=== PATIENT | female | born 1945 ===

== ENCOUNTER 2018-08-27 18:15 | Inpatient (IN) | payer MEDICARE, MEDICAID ==
--- NOTE | 2018-08-27 19:41 | ED PDOC ---
HPI: General Adult Time Seen by Provider: 08/27/18 19:12 Chief Complaint (Nursing): Weakness/Neurological Deficit Chief Complaint (Provider): Generalized weakness and tremors History Per: Patient, Family ( ), Home Organizer (rolan Cooper) History/Exam Limitations: language barrier () Onset/Duration Of Symptoms: Days (x2-3) Current Symptoms Are (Timing): Still Present Additional Complaint(s): Geetha Sheffield is a 73 year old female, with a past medical history of HTN, hypercholesterolemia, diabetes, depression, anxiety and dementia, who presents to the emergency department accompanied by complaining of generalized weakness and tremors onset for x2-3 days. reports symptoms started at the same time and she has been seen here for the same in the past. also reports a decrease in appetite but she has been drinking soda, which she drinks x3-4 bottles of 12oz almost every day. Patient denies any apparent pain, recent illness, headache or other medical complaints. PMD: Ray De Los Santos Past Medical History Reviewed: Historical Data, Nursing Documentation, Vital Signs Vital Signs: Last Vital Signs Temp 98.2 F 08/27/18 18:56 Pulse 95 H 08/27/18 18:56 Resp 18 08/27/18 18:56 BP 157/85 H 08/27/18 18:56 Pulse Ox 95 08/27/18 18:56 - Medical History PMH: Anxiety, Dementia, Depression, Diabetes, HTN, Hypercholesterolemia - Surgical History Surgical History: No Surg Hx - Family History Family History: States: Unknown Family Hx - Allergies Allergies/Adverse Reactions: Allergies Allergy/AdvReac Type Severity Reaction Status Date / Time No Known Allergies Allergy Verified 08/27/18 18:53 Review of Systems ROS Statement: Except As Marked, All Systems Reviewed And Found Negative Constitutional: Positive for: Weakness (generalized) Gastrointestinal: Positive for: Other (decreased appetite but drinking soda) Musculoskeletal: Positive for: Other (tremors) Neurological: Negative for: Headache Physical Exam - Reviewed Nursing Documentation Reviewed: Yes Vital Signs Reviewed: Yes - Physical Exam Appears: Positive for: No Acute Distress Head Exam: Positive for: ATRAUMATIC, NORMAL INSPECTION, NORMOCEPHALIC Skin: Positive for: Warm, Dry, Pallor Eye Exam: Positive for: Normal appearance, EOMI, PERRL Neck: Positive for: Normal, Painless ROM, Supple Cardiovascular/Chest: Positive for: Regular Rate, Rhythm. Negative for: Murmur Respiratory: Positive for: Normal Breath Sounds. Negative for: Respiratory Distress Gastrointestinal/Abdominal: Positive for: Normal Exam, Soft. Negative for: Tenderness, Guarding, Rebound Back: Positive for: Normal Inspection. Negative for: L CVA Tenderness, R CVA Tenderness, Vertebral Tenderness Extremity: Positive for: Normal ROM (upper and lower extremities). Negative for: Tenderness, Deformity, Swelling Neurologic/Psych: Positive for: Alert, endoscopic technician II-XII (intact), Oriented, Cerebellar Tests (normal), Other (Global tremors at rest). Negative for: Motor/Sensory Deficits, Aphasia, Facial Droop - Laboratory Results Result Diagrams: 08/27/18 21:29 08/27/18 20:53 - ECG O2 Sat by Pulse Oximetry: 95 (RA) Pulse Ox Interpretation: Normal Medical Decision Making Medical Decision Making: Time: 19:12 A/P: 73 y/o female with history of DM, HTN, hypercholesterolemia, depression and anxiety presenting with tremors and weakness for the past x3 days. Symptoms are not lateralizing, not concerned for acute CVA. Differential diagnosis includes but not limited to electrolyte imbalance, anemia, infection, and anxiety. Will get blood work, head CT, chest x-ray and reeval. Initial Plan: --Type and screen --VBG Shock Panel --Head w/o contrast [CT] --Alcohol serum --CMP --Drug screen, urine --Troponin I --CBC w/ differential --PTT --PT --Chest two views (PA/LAT) [RAD] --Urinalysis --Reevaluation --Accucheck 189 21:[address] FINDINGS: BRAIN Chronic severe periventricular and subcortical microvascular disease is seen. VENTRICLES: There is generalized parenchymal atrophy noted as demonstrated by symmetrical dilatation of ventricles and sulci. ORBITS: The orbits are unremarkable. SINUSES AND MASTOIDS: Opacification is noted including right mastoid air cells compatible with mastoiditis. BONES: No fracture. SOFT TISSUES: Unremarkable. MISCELLANEOUS: No acute intracranial pathology. IMPRESSION: 1. There is generalized parenchymal atrophy noted as demonstrated by symmetrical dilatation of ventricles and sulci. 2. Chronic severe periventricular and subcortical microvascular disease is seen. 3. Right mastoiditis. 4. No acute intracranial pathology. --2L NS ordered after elevated lactate of 8 (manually placed in computer by nurse due to VBG-meditech interface error earlier) --ABx ordered empirically --Signs of UTI --After fluids, patient reported feeling better, less tremulous, with more strength, was able to ambulate to the bathroom unassisted --Rectal temp 97 --Second lactic acid is 5.5 on VBG, will continue to hydrate --Case discussed with Dr. Agee, patient is suitable for Tele, does not need ICU given stable vitals and improving condition --------- Scribe Attestation: Documented by Kenneth Staley, acting as a scribe for Arthur Alejo MD. Provider Scribe Attestation: All medical record entries made by the Scribe were at my direction and personal ly dictated by me. I have reviewed the chart and agree that the record accurately reflects my personal performance of the history, physical exam, medical decision making, and the department course for this patient. I have also personally directed, reviewed, and agree with the discharge instructions and disposition. Disposition - Clinical Impression Clinical Impression: UTI (urinary tract infection), Sepsis - Patient ED Disposition Is Patient to be Admitted: Yes Discussed With : Tera Agee Doctor Will See Patient In The: Hospital - Disposition Disposition Time: 00:00 Condition: IMPROVED
[2018-08-27 21:24] LABS: INR 0.9; PROTHROMBIN TIME 10.2 Seconds (9.8-13.1)
[2018-08-27 21:29] LABS: ALB/GLOB RATIO 1.1 (1.0-2.1); ALBUMIN 4.4 g/dL (3.5-5.0); ALT/SGPT 18 U/L (9-52); AST/SGOT 23 U/L (14-36); BLOOD UREA NITROGEN 34 mg/dl (7-17); CALCIUM 10.2 mg/dL (8.4-10.2); GFR NON-AFRICAN AMERICAN 28
[2018-08-27 21:34] LABS: BASO % 0.3 % (0.0-2.0); EOS % 0.1 % (0.0-4.0); LYMPH # 0.9 K/uL (1.0-4.3); LYMPH % 5.5 % (20.0-40.0); MEAN CELL VOLUME 83.7 fl (81.0-99.0); MEAN CORPUSCULAR HEMOGLOBIN 27.3 pg (27.0-31.0); MEAN CORPUSCULAR HGB CONC 32.6 g/dL (33.0-37.0); MEAN PLATELET VOLUME 9.5 fl (7.2-11.7); MONO # 0.9 K/uL (0.0-0.8); MONO % 5.5 % (0.0-10.0); NEUT # 15.2 K/uL (1.8-7.0); NEUT % 88.6 % (50.0-75.0); PLATELET COUNT 324 K/uL (130-400); RBC 4.77 Mil/uL (3.80-5.20); RED CELL DISTRIBUTION WIDTH 13.8 % (11.5-14.5); WHITE BLOOD COUNT 17.1 K/uL (4.8-10.8)
[2018-08-27] MEDS: Sodium Chloride 0.9% 2,000 ML IV SCH ×2 (22:03→23:15)
[2018-08-27 22:29] LABS: HYPOCHROMIC SLIGHT; LYMPHOCYTE 9 % (20-50); MICROCYTOSIS SLIGHT; MONOCYTE 3 % (0-10); NEUTROPHIL 88 % (42-75); PLATELET ESTIMATE NORMAL (NORMAL); TOTAL CELLS COUNTED 100
[2018-08-27 22:30] LABS: HYPERSEGMENTATION PRESENT
[2018-08-27 23:00] LABS: PARTIAL THROMBOPLASTIN TIME 113.5 Seconds (25.6-37.1)
[2018-08-27 23:51] LABS: SQUAMOUS EPITHIAL 5 /hpf (0-5); URINE BACTERIA MOD (<OCC); URINE BILIRUBIN NEGATIVE (NEGATIVE); URINE BLOOD NEGATIVE (NEGATIVE); URINE CLARITY SLIGHTY-CLOUDY (Clear); URINE COLOR YELLOW (YELLOW); URINE GLUCOSE (UA) NEG (Normal); URINE LEUKOCYTE ESTERASE TRACE Leu/uL (Negative); URINE PROTEIN NEGATIVE (NEGATIVE); URINE UROBILINOGEN 0.2-1.0 mg/dL (0.2-1.0)
[2018-08-28 00:49] LABS: VENOUS BLOOD GAS BASE EXCESS -0.8 mmol/L (0.0-2.0); VENOUS BLOOD GAS PCO2 41 mmHg (40-60); VENOUS BLOOD GAS PO2 60 mm/Hg (30-55); VENOUS BLOOD PH 7.38 (7.32-7.43)
[2018-08-28] MEDS ORDERED: Sodium Chloride 0.9% 1,000 ML IV SCH (01:00)
[2018-08-28] MEDS ORDERED: Metoprolol 1 mg/ml Inj IVP STA (02:49)
[2018-08-28] MEDS ORDERED: levoFLOXacin 750 mg in D5W 750 MG/150 ML BAG IVPB ONE (02:59)
[2018-08-28] MEDS ORDERED: levoFLOXacin 750 mg in D5W 750 MG/150 ML BAG IVPB STA (03:09)
[2018-08-28] MEDS ORDERED: Metoprolol 1 mg/ml Inj IVP ONE (03:40)
[2018-08-28] MEDS: Sodium Chloride 0.9% 1,000 ML IV SCH ×3 (08:35→21:12)
[2018-08-28] MEDS: levoFLOXacin 750 mg in D5W 750 MG/150 ML BAG IVPB SCH (08:36)
[2018-08-28] MEDS ORDERED: levoFLOXacin 750 mg in D5W 150 ML BAG IVPB SCH (09:00)
[2018-08-28] MEDS ORDERED: levoFLOXacin 750 mg in D5W 750 MG/150 ML BAG IVPB SCH (09:00)
[2018-08-28 09:27] LABS: HEMOGLOBIN 11.7 g/dL (12.0-16.0); MEAN CELL VOLUME 83.8 fl (81.0-99.0); MEAN CORPUSCULAR HEMOGLOBIN 27.3 pg (27.0-31.0); MEAN CORPUSCULAR HGB CONC 32.6 g/dL (33.0-37.0); RBC 4.28 Mil/uL (3.80-5.20); RED CELL DISTRIBUTION WIDTH 13.7 % (11.5-14.5); WHITE BLOOD COUNT 14.7 K/uL (4.8-10.8)
--- NOTE | 2018-08-28 09:48 | CP.PCM.HP ---
History of Present Illness - History of Present Illness History of Present Illness: 73 year old female w/ PMHx of HTN, hypercholesterolemia, diabetes, depression, anxiety and dementia presented to ED due to generalized weakness and tremors onset for 2-3 days. Patient was found to have severe lactic acidosis with possible source of infection in urine. Patient was given IVF and has improved. Patient was seen and examined today, states she feels well. no pain/fever/chills/urinary symptoms. PMD: Ray De Los Santos Present on Admission - Present on Admission Any Indicators Present on Admission: No Review of Systems - Review of Systems All systems: reviewed and no additional remarkable complaints except (mentioned above) Past Patient History - Past Medical History & Family History Past Medical History?: Yes - Past Social History Smoking Status: Never Smoked - CARDIAC Hx Cardiac Disorders: Yes Hx Hypercholesterolemia: Yes Hx Hypertension: Yes - PULMONARY Hx Respiratory Disorders: No - NEUROLOGICAL Hx Neurological Disorder: Yes Hx Dementia: Yes - HEENT Hx HEENT Problems: No - RENAL Hx Chronic Kidney Disease: No - ENDOCRINE/METABOLIC Hx Endocrine Disorders: Yes Hx Diabetes Mellitus Type 2: Yes - HEMATOLOGICAL/ONCOLOGICAL Hx Blood Disorders: No - INTEGUMENTARY Hx Dermatological Problems: No - MUSCULOSKELETAL/RHEUMATOLOGICAL Hx Musculoskeletal Disorders: No Hx Falls: No - GASTROINTESTINAL Hx Gastrointestinal Disorders: No - GENITOURINARY/GYNECOLOGICAL Hx Genitourinary Disorders: No - PSYCHIATRIC Hx Psychophysiologic Disorder: Yes Hx Anxiety: Yes Hx Depression: Yes Hx Substance Use: No - SURGICAL HISTORY Hx Surgeries: Yes Hx Cardiac Catheterization: Yes Hx Section: Yes - ANESTHESIA Hx Anesthesia: Yes Hx Anesthesia Reactions: No Meds Allergies/Adverse Reactions: Allergies Allergy/AdvReac Type Severity Reaction Status Date / Time No Known Allergies Allergy Verified 08/27/18 18:53 Physical Exam - Constitutional Appears: Non-toxic, No Acute Distress - Head Exam Head Exam: NORMAL INSPECTION - Eye Exam Eye Exam: Normal appearance - Neck Exam Neck exam: Positive for: Normal Inspection - Respiratory Exam Respiratory Exam: NORMAL BREATHING PATTERN - Cardiovascular Exam Cardiovascular Exam: +S1, +S2 - GI/Abdominal Exam GI & Abdominal Exam: Soft, Tenderness (suprapubic) - Psychiatric Exam Psychiatric exam: Normal Affect, Normal Mood - Skin Skin Exam: Normal Color, Warm Results - Vital Signs Recent Vital Signs: Last Vital Signs Temp 98.1 F 08/28/18 07:57 Pulse 60 08/28/18 08:29 Resp 18 08/28/18 07:57 BP 158/71 H 08/28/18 08:29 Pulse Ox 96 08/28/18 07:57 - Labs Result Diagrams: 08/30/18 06:00 08/30/18 06:00 Labs: Laboratory Results - last 24 hr 08/27/18 08/27/18 08/27/18 19:27 20:43 20:44 WBC Cancelled RBC Cancelled Hgb Cancelled Hct Cancelled MCV Cancelled MCH Cancelled MCHC Cancelled RDW Cancelled Plt Count Cancelled MPV Cancelled Gran % Cancelled Neut % (Auto) Lymph % (Auto) Cancelled Glenn % (Auto) Cancelled Eos % (Auto) Cancelled Baso % (Auto) Cancelled Gran # Cancelled Neut # (Auto) Lymph # (Auto) Cancelled Glenn # (Auto) Cancelled Eos # (Auto) Cancelled Baso # (Auto) Cancelled Neutrophils % (Manual) Cancelled Band Neutrophils % Cancelled Lymphocytes % (Manual) Cancelled Reactive Lymphs % Cancelled Monocytes % (Manual) Cancelled Eosinophils % (Manual) Cancelled Basophils % (Manual) Cancelled Metamyelocytes % Cancelled Myelocytes % Cancelled Promyelocytes % Cancelled Blast Cells % Cancelled Plasma Cell % (Manual) Cancelled Nucleated RBC % Cancelled Hypersegmented Polys Cancelled Smudge Cells Cancelled Toxic Granulation Cancelled Dohle Bodies Cancelled Aida Rods Cancelled Platelet Estimate Cancelled Plt Clumps, EDTA Cancelled Large Platelets Cancelled Giant Platelets Cancelled RBC Morphology Cancelled Polychromasia Cancelled Hypochromasia (manual) Cancelled Poikilocytosis (manual Cancelled Basophilic Stippling Cancelled Anisocytosis (manual) Cancelled Microcytosis (manual) Cancelled Macrocytosis (manual) Cancelled Spherocytes Cancelled Sickle Cells Cancelled Target Cells Cancelled Tear Drop Cells Cancelled Ovalocytes Cancelled Stomatocytes Cancelled Helmet Cells Cancelled [place] Bodies Cancelled [place] Cells Cancelled Acanthocytes (Spur) Cancelled Rouleaux Cancelled Schistocytes Cancelled PT INR APTT pO2 VBG pH VBG pCO2 VBG HCO3 VBG Total CO2 VBG O2 Sat (Calc) VBG Base Excess VBG Potassium Glucose Lactate FiO2 Crit Value Called To Crit Value Called By Crit Value Read Back Blood Gas Notified Time Sodium Potassium Chloride Carbon Dioxide Anion Gap BUN Creatinine Est GFR ( Amer) Est GFR (Non-Af Amer) POC Glucose (mg/dL) 189 H Random Glucose Lactic Acid Calcium Total Bilirubin AST ALT Alkaline Phosphatase Troponin I Total Protein Albumin Globulin Albumin/Globulin Ratio Venous Blood Potassium Urine Color Urine Clarity Urine pH Ur Specific [place] Urine Protein Urine Glucose (UA) Urine Ketones Urine Blood Urine Nitrate Urine Bilirubin Urine Urobilinogen Ur Leukocyte Esterase Urine RBC (Auto) Urine Microscopic WBC Ur Squamous Epith Cells Urine Bacteria Hyaline Casts Influenza Typ A,B (EIA) Blood Type A POSITIVE Blood Type Confirm Antibody Screen Negative BBK History Checked No verified bt 08/27/18 08/27/18 08/27/18 20:53 21:29 21:29 WBC 17.1 H RBC 4.77 Hgb 13.0 Hct 40.0 MCV 83.7 MCH 27.3 MCHC 32.6 L RDW 13.8 Plt Count 324 MPV 9.5 Gran % Neut % (Auto) 88.6 H Lymph % (Auto) 5.5 L Glenn % (Auto) 5.5 Eos % (Auto) 0.1 Baso % (Auto) 0.3 Gran # Neut # (Auto) 15.2 H Lymph # (Auto) 0.9 L Glenn # (Auto) 0.9 H Eos # (Auto) 0.0 Baso # (Auto) 0.0 Neutrophils % (Manual) 88 H Band Neutrophils % Lymphocytes % (Manual) 9 L Reactive Lymphs % Monocytes % (Manual) 3 Eosinophils % (Manual) Basophils % (Manual) Metamyelocytes % Myelocytes % Promyelocytes % Blast Cells % Plasma Cell % (Manual) Nucleated RBC % Hypersegmented Polys Present Smudge Cells Toxic Granulation Dohle Bodies Aida Rods Platelet Estimate Normal Plt Clumps, EDTA Large Platelets Giant Platelets RBC Morphology Polychromasia Hypochromasia (manual) Slight Poikilocytosis (manual Basophilic Stippling Anisocytosis (manual) Microcytosis (manual) Slight Macrocytosis (manual) Spherocytes Sickle Cells Target Cells Tear Drop Cells Ovalocytes Stomatocytes Helmet Cells [place] Bodies Abdoul Cells Acanthocytes (Spur) Rouleaux Schistocytes PT INR APTT pO2 VBG pH VBG pCO2 VBG HCO3 VBG Total CO2 VBG O2 Sat (Calc) VBG Base Excess VBG Potassium Glucose Lactate FiO2 Crit Value Called To Crit Value Called By Crit Value Read Back Blood Gas Notified Time Sodium 141 Potassium 3.4 L Chloride 101 Carbon Dioxide 20 L Anion Gap 23 H BUN 34 H Creatinine 1.8 H Est GFR ( Amer) 33 Est GFR (Non-Af Amer) 28 POC Glucose (mg/dL) Random Glucose 143 H Lactic Acid Calcium 10.2 Total Bilirubin 0.5 AST 23 ALT 18 Alkaline Phosphatase 89 Troponin I < 0.0120 Total Protein 8.4 H Albumin 4.4 Globulin 4.0 H Albumin/Globulin Ratio 1.1 Venous Blood Potassium Urine Color Urine Clarity Urine pH Ur Specific [place] Urine Protein Urine Glucose (UA) Urine Ketones Urine Blood Urine Nitrate Urine Bilirubin Urine Urobilinogen Ur Leukocyte Esterase Urine RBC (Auto) Urine Microscopic WBC Ur Squamous Epith Cells Urine Bacteria Hyaline Casts Influenza Typ A,B (EIA) Blood Type Blood Type Confirm A POSITIVE Antibody Screen BBK History Checked 08/27/18 08/27/18 08/27/18 21:35 23:44 23:50 WBC RBC Hgb Hct MCV MCH MCHC RDW Plt Count MPV Gran % Neut % (Auto) Lymph % (Auto) Glenn % (Auto) Eos % (Auto) Baso % (Auto) Gran # Neut # (Auto) Lymph # (Auto) Glenn # (Auto) Eos # (Auto) Baso # (Auto) Neutrophils % (Manual) Band Neutrophils % Lymphocytes % (Manual) Reactive Lymphs % Monocytes % (Manual) Eosinophils % (Manual) Basophils % (Manual) Metamyelocytes % Myelocytes % Promyelocytes % Blast Cells % Plasma Cell % (Manual) Nucleated RBC % Hypersegmented Polys Smudge Cells Toxic Granulation Dohle Bodies Aida Rods Platelet Estimate Plt Clumps, EDTA Large Platelets Giant Platelets RBC Morphology Polychromasia Hypochromasia (manual) Poikilocytosis (manual Basophilic Stippling Anisocytosis (manual) Microcytosis (manual) Macrocytosis (manual) Spherocytes Sickle Cells Target Cells Tear Drop Cells Ovalocytes Stomatocytes Helmet Cells [place] Bodies [place] Cells Acanthocytes (Spur) Rouleaux Schistocytes PT 10.2 INR 0.9 APTT 113.5 H pO2 VBG pH VBG pCO2 VBG HCO3 VBG Total CO2 VBG O2 Sat (Calc) VBG Base Excess VBG Potassium Glucose Lactate FiO2 Crit Value Called To Crit Value Called By Crit Value Read Back Blood Gas Notified Time Sodium Potassium Chloride Carbon Dioxide Anion Gap BUN Creatinine Est GFR ( Amer) Est GFR (Non-Af Amer) POC Glucose (mg/dL) Random Glucose Lactic Acid Calcium Total Bilirubin AST ALT Alkaline Phosphatase Troponin I Total Protein Albumin Globulin Albumin/Globulin Ratio Venous Blood Potassium Urine Color Yellow Urine Clarity Slighty-cloudy Urine pH 6.0 Ur Specific [place] 1.012 Urine Protein Negative Urine Glucose (UA) Neg Urine Ketones Negative Urine Blood Negative Urine Nitrate Negative Urine Bilirubin Negative Urine Urobilinogen 0.2-1.0 Ur Leukocyte Esterase Trace Urine RBC (Auto) 3 Urine Microscopic WBC 5 Ur Squamous Epith Cells 5 Urine Bacteria Mod H Hyaline Casts 11-20 H Influenza Typ A,B (EIA) Negative for flu a/b Blood Type Blood Type Confirm Antibody Screen BBK History Checked 08/28/18 08/28/18 08/28/18 00:08 00:48 08:32 WBC RBC Hgb Hct MCV MCH MCHC RDW Plt Count MPV Gran % Neut % (Auto) Lymph % (Auto) Glenn % (Auto) Eos % (Auto) Baso % (Auto) Gran # Neut # (Auto) Lymph # (Auto) Glenn # (Auto) Eos # (Auto) Baso # (Auto) Neutrophils % (Manual) Band Neutrophils % Lymphocytes % (Manual) Reactive Lymphs % Monocytes % (Manual) Eosinophils % (Manual) Basophils % (Manual) Metamyelocytes % Myelocytes % Promyelocytes % Blast Cells % Plasma Cell % (Manual) Nucleated RBC % Hypersegmented Polys Smudge Cells Toxic Granulation Dohle Bodies Aida Rods Platelet Estimate Plt Clumps, EDTA Large Platelets Giant Platelets RBC Morphology Polychromasia Hypochromasia (manual) Poikilocytosis (manual Basophilic Stippling Anisocytosis (manual) Microcytosis (manual) Macrocytosis (manual) Spherocytes Sickle Cells Target Cells Tear Drop Cells Ovalocytes Stomatocytes Helmet Cells [place] Bodies Abdoul Cells Acanthocytes (Spur) Rouleaux Schistocytes PT INR APTT pO2 60 H VBG pH 7.38 VBG pCO2 41 VBG HCO3 24.1 VBG Total CO2 25.6 VBG O2 Sat (Calc) 93.9 H VBG Base Excess -0.8 L VBG Potassium 3.3 L Glucose 205 H Lactate 5.5 H* FiO2 21.0 Crit Value Called To Dr gema smalls Crit Value Called By Govind Crit Value Read Back Y Blood Gas Notified Time 49 Sodium 139.0 Potassium Chloride 104.0 Carbon Dioxide Anion Gap BUN Creatinine Est GFR ( Amer) Est GFR (Non-Af Amer) POC Glucose (mg/dL) Random Glucose Lactic Acid 4.6 H* 1.4 Calcium Total Bilirubin AST ALT Alkaline Phosphatase Troponin I Total Protein Albumin Globulin Albumin/Globulin Ratio Venous Blood Potassium 3.3 L Urine Color Urine Clarity Urine pH Ur Specific [place] Urine Protein Urine Glucose (UA) Urine Ketones Urine Blood Urine Nitrate Urine Bilirubin Urine Urobilinogen Ur Leukocyte Esterase Urine RBC (Auto) Urine Microscopic WBC Ur Squamous Epith Cells Urine Bacteria Hyaline Casts Influenza Typ A,B (EIA) Blood Type Blood Type Confirm Antibody Screen BBK History Checked 08/28/18 09:25 WBC 14.7 H RBC 4.28 Hgb 11.7 L Hct 35.9 MCV 83.8 MCH 27.3 MCHC 32.6 L RDW 13.7 Plt Count 266 MPV Gran % Neut % (Auto) Lymph % (Auto) Glenn % (Auto) Eos % (Auto) Baso % (Auto) Gran # Neut # (Auto) Lymph # (Auto) Glenn # (Auto) Eos # (Auto) Baso # (Auto) Neutrophils % (Manual) Band Neutrophils % Lymphocytes % (Manual) Reactive Lymphs % Monocytes % (Manual) Eosinophils % (Manual) Basophils % (Manual) Metamyelocytes % Myelocytes % Promyelocytes % Blast Cells % Plasma Cell % (Manual) Nucleated RBC % Hypersegmented Polys Smudge Cells Toxic Granulation Dohle Bodies Aida Rods Platelet Estimate Plt Clumps, EDTA Large Platelets Giant Platelets RBC Morphology Polychromasia Hypochromasia (manual) Poikilocytosis (manual Basophilic Stippling Anisocytosis (manual) Microcytosis (manual) Macrocytosis (manual) Spherocytes Sickle Cells Target Cells Tear Drop Cells Ovalocytes Stomatocytes Helmet Cells [place] Bodies Abdoul Cells Acanthocytes (Spur) Rouleaux Schistocytes PT INR APTT pO2 VBG pH VBG pCO2 VBG HCO3 VBG Total CO2 VBG O2 Sat (Calc) VBG Base Excess VBG Potassium Glucose Lactate FiO2 Crit Value Called To Crit Value Called By Crit Value Read Back Blood Gas Notified Time Sodium Potassium Chloride Carbon Dioxide Anion Gap BUN Creatinine Est GFR ( Amer) Est GFR (Non-Af Amer) POC Glucose (mg/dL) Random Glucose Lactic Acid Calcium Total Bilirubin AST ALT Alkaline Phosphatase Troponin I Total Protein Albumin Globulin Albumin/Globulin Ratio Venous Blood Potassium Urine Color Urine Clarity Urine pH Ur Specific [place] Urine Protein Urine Glucose (UA) Urine Ketones Urine Blood Urine Nitrate Urine Bilirubin Urine Urobilinogen Ur Leukocyte Esterase Urine RBC (Auto) Urine Microscopic WBC Ur Squamous Epith Cells Urine Bacteria Hyaline Casts Influenza Typ A,B (EIA) Blood Type Blood Type Confirm Antibody Screen BBK History Checked Assessment & Plan - Assessment and Plan (Free Text) Assessment: 73 year old female w/ PMHx of HTN, hypercholesterolemia, diabetes, depression, anxiety and dementia admitted for severe sepsis likely due to UTI. plan IV abx IVF monitor labs monitor vitals obtain ID consult PT eval follow up cultures rest of plan as ordered
[2018-08-28 10:22] LABS: CALCIUM 9.4 mg/dL (8.4-10.2)
[2018-08-28] MEDS ORDERED: Potassium Chloride 20 mEq ER Tab PO ONE (10:38)
--- NOTE | 2018-08-28 11:49 | CT ---
Date of service: 08/27/2018 PROCEDURE: CT HEAD WITHOUT CONTRAST. HISTORY: tremors COMPARISON: None available. TECHNIQUE: Axial computed tomography images were obtained through the head/brain without intravenous contrast. Radiation dose: Total exam DLP = 790.12 mGy-cm. This CT exam was performed using one or more of the following dose reduction techniques: Automated exposure control, adjustment of the mA and/or kV according to patient size, and/or use of iterative reconstruction technique. FINDINGS: HEMORRHAGE: No intracranial hemorrhage. BRAIN: Good corticomedullary differentiation is seen with exception of a small chronic lobar infarction right occipital lobe. Proportional, diffuse expansion of the ventriculosulcal and cisternal spaces is appreciated with white matter lucency compatible with diffuse cerebral atrophy and chronic microangiopathy. No suspicious extra-axial fluid collection is identified and the midline brain anatomy appears grossly nonfocal as imaged. There is no mass effect throughout. VENTRICLES: Unremarkable. No hydrocephalus. CALVARIUM: Unremarkable. PARANASAL SINUSES: Unremarkable as visualized. No significant inflammatory changes. MASTOID AIR CELLS: Right mastoid effusions noted. OTHER FINDINGS: None. IMPRESSION: No definitive acute intracranial findings by standard CT criteria. Follow-up CT or MRI can be utilized as clinically warranted. 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 Age-appropriate age related neuro degenerative findings as per above.
--- NOTE | 2018-08-28 12:59 | CP.PCM.CON ---
History of Present Illness - History of Present Illness History of Present Illness: Geetha Sheffield is a 73 year old female, with a past medical history of HTN, hypercholesterolemia, diabetes, depression, anxiety and dementia, who presents to the emergency department accompanied by complaining of generalized weakness and tremors onset for x2-3 days Rx for sepsis / UTI . PMH HTN, hypercholesterolemia, diabetes, depression, anxiety and dementia Review of Systems - Review of Systems All systems: reviewed and no additional remarkable complaints except - Constitutional Constitutional: As Per HPI - EENT Eyes: absent: As Per HPI, Blind Spots, Blurred Vision, Change in Vision, Decreased Night Vision, Diplopia, Discharge, Dry Eye, Exophthalmos, Floaters, Irritation, Itchy Eyes, Loss of Peripheral Vision, Pain, Photophobia, Requires Corrective Lenses, Sees Flashes, Spots in Vision, Tunnel Vision, Other Visual Disturbances, Loss of Vision, Other Ears: absent: As Per HPI, Decreased Hearing, Ear Discharge, Ear Pain, Tinnitus, Abnormal Hearing, Disequilibrium, Dizziness, Other Nose/Mouth/Throat: absent: As Per HPI, Epistaxis, Nasal Congestion, Nasal Discharge, Nasal Obstruction, Nasal Trauma, Nose Pain, Post Nasal Drip, Sinus Pain, Sinus Pressure, Bleeding Gums, Change in Voice, Dental Pain, Dry Mouth, D ysphagia, Halitosis, Hoarsness, Lip Swelling, Mouth Lesions, Mouth Pain, Odynophagia, Sore Throat, Throat Swelling, Tongue Swelling, Facial Pain, Neck Pain, Neck Mass, Other - Breasts Breasts: absent: As Per HPI, Change in Shape, Mass, Pain, Nipple Discharge, N ipple Inversion, Skin Changes, Swelling, Other - Cardiovascular Cardiovascular: absent: As Per HPI, Acrocyanosis, Chest Pain, Chest Pain at Rest, Chest Pain with Activity, Claudication, Diaphoresis, Dyspnea, Dyspnea on Exertion, Edema, Irregular Heart Rhythm, Pain Radiating to Arm/Neck/Jaw, Leg Edema, Leg Ulcers, Lightheadedness, Orthopnea, Palpitations, Paroxysmal Nocturnal Dyspnea, Pedal Edema, Radiating Pain, Rapid Heart Rate, Slow Heart Rate, Syncope, Other - Respiratory Respiratory: absent: As Per HPI, Cough, Dyspnea, Hemoptysis, Dyspnea on Exertion, Wheezing, Snoring, Stridor, Pain on Inspiration, Chest Congestion, Excessive Mucous Production, Change in Mucous Color, Pain with Coughing, Other - Gastrointestinal Gastrointestinal: absent: As Per HPI, Abdominal Pain, Belching, Bloating, Change in Bowel Habits, Change in Stool Character, Coffee Ground Emesis, Constipation, Cramping, Diarrhea, Dyspepsia, Dysphagia, Early Satiety, Excessive Flatus, Fecal Incontinence, Heartburn, Hematemesis, Hematochezia, Loose Stools, Melena, Nausea, Odynophagia, Temesmus, Vomiting, Other - Genitourinary Genitourinary: As Per HPI - Reproductive: Female Reproductive:Female: absent: As Per HPI, Amenorrhea, Amenorrhea/ Control, Currently Menstual, Cycle <21 Days, Cycle >35 Days, Cycle Variable, Menses 1-7 Days, Menses >/= 8 Days, Menses Variable, Cycle > 4 Weeks Between, No Menses for 6 Months, Heavy Menses, Light Menses, Normal Menses, Spotting Between Cycles, S/P Hysterectomy, Menopausal, Post Menopausal, Premenarche, Abnormal Vaginal Bleeding, Dysmenorrhea, Dyspareunia, Genital Lesions, Genital Pruritis, Pelvic Pain, Prolapse Symptoms, Sexual Dysfunction, Vaginal Discharge, Vaginal Dryness, Vaginal Odor, Vaginal Pruritis, Other - Menstruation Menstruation: absent: As Per HPI, Amenorrhea, Amenorrhea/ Control, Currently Menstual, Cycle <21 Days, Cycle >35 Days, Cycle Variable, Menses 1-7 Days, Menses >/= 8 Days, Menses Variable, Cycle > 4 Weeks Between, No Menses for 6 Months, Heavy Menses, Light Menses, Normal Menses, Spotting Between Cycles, S/P Hysterectomy, Menopausal, Post Menopausal, Premenarche, Abnormal Vaginal Bleeding, Dysmenorrhea, Other - Musculoskeletal Musculoskeletal: absent: As Per HPI, Abnormal Gait, Arthralgias, Atrophy, Back Pain, Deformity, Joint Swelling, Limited Range of Motion, Loss of Height, Muscle Cramps, Muscle Weakness, Myalgias, Neck Pain, Numbness, Radiating Pain into Limb, Stiffness, Tingling, Other - Integumentary Integumentary: absent: As Per HPI, Acne, Alopecia, Bleeding Lesions, Change in Hair, Change in Nails, Change in Pigmentation, Changing Lesions, Dry Skin, Erythema, Furuncle, Hirsutism, Lesions, New Lesions, Non-Healing Lesions, Photosensitivity, Pruritus, Rash, Skin Pain, Skin Ulcer, Sores, Striae, Swelli ng, Unusual Bruising, Wounds, Jaundice, Other - Neurological Neurological: As Per HPI - Psychiatric Psychiatric: absent: As Per HPI, Abnormal Sleep Pattern, Anhedonia, Anxiety, Auditory Hallucinations, Behavioral Changes, Change in Appetite, Change in Libido, Confusion, Depression, Difficulty Concentrating, Hallucinations, Homicidal Ideation, Hopelessness, Irritability, Memory Loss, Mood Swings, Panic Attacks, Paranoia, Suicidal Ideation, Visual Hallucinations, Tactile Hallucinations, Other Past Patient History - Past Medical History & Family History Past Medical History?: Yes - Past Social History Smoking Status: Never Smoked - CARDIAC Hx Cardiac Disorders: Yes Hx Hypercholesterolemia: Yes Hx Hypertension: Yes - PULMONARY Hx Respiratory Disorders: No - NEUROLOGICAL Hx Neurological Disorder: Yes Hx Dementia: Yes - HEENT Hx HEENT Problems: No - RENAL Hx Chronic Kidney Disease: No - ENDOCRINE/METABOLIC Hx Endocrine Disorders: Yes Hx Diabetes Mellitus Type 2: Yes - HEMATOLOGICAL/ONCOLOGICAL Hx Blood Disorders: No - INTEGUMENTARY Hx Dermatological Problems: No - MUSCULOSKELETAL/RHEUMATOLOGICAL Hx Musculoskeletal Disorders: No Hx Falls: No - GASTROINTESTINAL Hx Gastrointestinal Disorders: No - GENITOURINARY/GYNECOLOGICAL Hx Genitourinary Disorders: No - PSYCHIATRIC Hx Psychophysiologic Disorder: Yes Hx Anxiety: Yes Hx Depression: Yes Hx Substance Use: No - SURGICAL HISTORY Hx Surgeries: Yes Hx Cardiac Catheterization: Yes Hx Section: Yes - ANESTHESIA Hx Anesthesia: Yes Hx Anesthesia Reactions: No Meds Allergies/Adverse Reactions: Allergies Allergy/AdvReac Type Severity Reaction Status Date / Time No Known Allergies Allergy Verified 08/27/18 18:53 - Medications Medications: Current Medications Amlodipine Besylate (Norvasc) 5 mg PO DAILY [facility] Last Admin: 08/28/18 08:28 Dose: 5 mg Aspirin (Aspirin Chewable) 81 mg PO DAILY [facility] Escitalopram Oxalate (Lexapro) 20 mg PO HS [facility] Glipizide (Glucotrol) 5 mg PO ACB [facility] HCTZ/Losartan Potassium (Hyzaar 12.5 Mg-50 Mg) 2 tab PO DAILY [facility] Home Med (Patient's Own Medication) 120 unit PO DAILY [facility] Sodium Chloride (Sodium Chloride 0.9%) 2,000 mls @ 1,000 mls/hr IV .Q2H [facility] Stop: 08/28/18 21:10 Last Admin: 08/27/18 23:15 Dose: 1,000 mls/hr Sodium Chloride (Sodium Chloride 0.9%) 1,000 mls @ 150 mls/hr IV .Q6H40M [facility] Stop: 08/29/18 06:04 Last Admin: 08/28/18 08:35 Dose: 150 mls/hr Levofloxacin/Dextrose (Levaquin 750mg) 750 mg in 150 mls @ 100 mls/hr IVPB DAILY [facility] Last Admin: 08/28/18 08:36 Dose: 100 mls/hr Lorazepam (Ativan) 2 mg PO DAILY [facility] Memantine (Namenda) 10 mg PO BID [facility] Metformin HCl (Glucophage) 1,000 mg PO BIDWM [facility] Metoprolol Succinate (Toprol Xl) 50 mg PO DAILY [facility] Metoprolol Tartrate (Lopressor) 50 mg PO DAILY [facility] Last Admin: 08/28/18 08:29 Dose: 50 mg Quetiapine Fumarate (Seroquel) 400 mg PO DAILY [facility] Sitagliptin Phosphate (Januvia) 100 mg PO DAILY [facility] Trazodone HCl (Desyrel) 100 mg PO HS [facility] Physical Exam - Constitutional Appears: Non-toxic, No Acute Distress, Confused, Chronically Ill - Head Exam Head Exam: NORMOCEPHALIC - Eye Exam Eye Exam: absent: Scleral icterus - ENT Exam ENT Exam: Mucous Membranes Dry, Normal External Ear Exam - Neck Exam Neck exam: Negative for: Lymphadenopathy - Respiratory Exam Respiratory Exam: Decreased Breath Sounds, Clear to Auscultation Bilateral - Cardiovascular Exam Cardiovascular Exam: REGULAR RHYTHM, +S1, +S2 - GI/Abdominal Exam GI & Abdominal Exam: Diminished Bowel Sounds, Soft. absent: Tenderness - Rectal Exam Rectal Exam: Deferred - Exam Exam: NORMAL INSPECTION - Extremities Exam Extremities exam: Negative for: pedal edema - Back Exam Back exam: absent: CVA tenderness (L), CVA tenderness (R) - Neurological Exam Neurological exam: Alert, CN II-XII Intact, Oriented x3, Reflexes Normal - Psychiatric Exam Psychiatric exam: Depressed - Skin Skin Exam: Dry Results - Vital Signs Recent Vital Signs: Last Vital Signs Temp 98.3 F 08/28/18 11:58 Pulse 60 08/28/18 11:58 Resp 18 08/28/18 11:58 BP 140/67 08/28/18 11:58 Pulse Ox 95 08/28/18 11:58 - Labs Result Diagrams: 08/28/18 09:25 08/28/18 09:25 Labs: Laboratory Results - last 24 hr 08/27/18 08/27/18 08/27/18 19:27 20:43 20:44 WBC Cancelled RBC Cancelled Hgb Cancelled Hct Cancelled MCV Cancelled MCH Cancelled MCHC Cancelled RDW Cancelled Plt Count Cancelled MPV Cancelled Gran % Cancelled Neut % (Auto) Lymph % (Auto) Cancelled [place] % (Auto) Cancelled Eos % (Auto) Cancelled Baso % (Auto) Cancelled Gran # Cancelled Neut # (Auto) Lymph # (Auto) Cancelled [place] # (Auto) Cancelled Eos # (Auto) Cancelled Baso # (Auto) Cancelled Neutrophils % (Manual) Cancelled Band Neutrophils % Cancelled Lymphocytes % (Manual) Cancelled Reactive Lymphs % Cancelled Monocytes % (Manual) Cancelled Eosinophils % (Manual) Cancelled Basophils % (Manual) Cancelled Metamyelocytes % Cancelled Myelocytes % Cancelled Promyelocytes % Cancelled Blast Cells % Cancelled Plasma Cell % (Manual) Cancelled Nucleated RBC % Cancelled Hypersegmented Polys Cancelled Smudge Cells Cancelled Toxic Granulation Cancelled Dohle Bodies Cancelled Aida Rods Cancelled Platelet Estimate Cancelled Plt Clumps, EDTA Cancelled Large Platelets Cancelled Giant Platelets Cancelled RBC Morphology Cancelled Polychromasia Cancelled Hypochromasia (manual) Cancelled Poikilocytosis (manual Cancelled Basophilic Stippling Cancelled Anisocytosis (manual) Cancelled Microcytosis (manual) Cancelled Macrocytosis (manual) Cancelled Spherocytes Cancelled Sickle Cells Cancelled Target Cells Cancelled Tear Drop Cells Cancelled Ovalocytes Cancelled Stomatocytes Cancelled Helmet Cells Cancelled Morrison-Ferrer [place] Bodies Cancelled Gypsy Cells Cancelled Acanthocytes (Spur) Cancelled Rouleaux Cancelled Schistocytes Cancelled PT INR APTT pO2 VBG pH VBG pCO2 VBG HCO3 VBG Total CO2 VBG O2 Sat (Calc) VBG Base Excess VBG Potassium Glucose Lactate FiO2 Crit Value Called To Crit Value Called By Crit Value Read Back Blood Gas Notified Time Sodium Potassium Chloride Carbon Dioxide Anion Gap BUN Creatinine Est GFR ( Amer) Est GFR (Non-Af Amer) POC Glucose (mg/dL) 189 H Random Glucose Lactic Acid Calcium Total Bilirubin AST ALT Alkaline Phosphatase Troponin I Total Protein Albumin Globulin Albumin/Globulin Ratio Venous Blood Potassium Urine Color Urine Clarity Urine pH Ur Specific Hansen Urine Protein Urine Glucose (UA) Urine Ketones Urine Blood Urine Nitrate Urine Bilirubin Urine Urobilinogen Ur Leukocyte Esterase Urine RBC (Auto) Urine Microscopic WBC Ur Squamous Epith Cells Urine Bacteria Hyaline Casts Influenza Typ A,B (EIA) Blood Type A POSITIVE Blood Type Confirm Antibody Screen Negative BBK History Checked No verified bt 08/27/18 08/27/18 08/27/18 20:53 21:29 21:29 WBC 17.1 H RBC 4.77 Hgb 13.0 Hct 40.0 MCV 83.7 MCH 27.3 MCHC 32.6 L RDW 13.8 Plt Count 324 MPV 9.5 Gran % Neut % (Auto) 88.6 H Lymph % (Auto) 5.5 L [place] % (Auto) 5.5 Eos % (Auto) 0.1 Baso % (Auto) 0.3 Gran # Neut # (Auto) 15.2 H Lymph # (Auto) 0.9 L [place] # (Auto) 0.9 H Eos # (Auto) 0.0 Baso # (Auto) 0.0 Neutrophils % (Manual) 88 H Band Neutrophils % Lymphocytes % (Manual) 9 L Reactive Lymphs % Monocytes % (Manual) 3 Eosinophils % (Manual) Basophils % (Manual) Metamyelocytes % Myelocytes % Promyelocytes % Blast Cells % Plasma Cell % (Manual) Nucleated RBC % Hypersegmented Polys Present Smudge Cells Toxic Granulation Dohle Bodies Aida Rods Platelet Estimate Normal Plt Clumps, EDTA Large Platelets Giant Platelets RBC Morphology Polychromasia Hypochromasia (manual) Slight Poikilocytosis (manual Basophilic Stippling Anisocytosis (manual) Microcytosis (manual) Slight Macrocytosis (manual) Spherocytes Sickle Cells Target Cells Tear Drop Cells Ovalocytes Stomatocytes Helmet Cells Morrison-Ferrer [place] Bodies Abdoul Cells Acanthocytes (Spur) Rouleaux Schistocytes PT INR APTT pO2 VBG pH VBG pCO2 VBG HCO3 VBG Total CO2 VBG O2 Sat (Calc) VBG Base Excess VBG Potassium Glucose Lactate FiO2 Crit Value Called To Crit Value Called By Crit Value Read Back Blood Gas Notified Time Sodium 141 Potassium 3.4 L Chloride 101 Carbon Dioxide 20 L Anion Gap 23 H BUN 34 H Creatinine 1.8 H Est GFR ( Amer) 33 Est GFR (Non-Af Amer) 28 POC Glucose (mg/dL) Random Glucose 143 H Lactic Acid Calcium 10.2 Total Bilirubin 0.5 AST 23 ALT 18 Alkaline Phosphatase 89 Troponin I < 0.0120 Total Protein 8.4 H Albumin 4.4 Globulin 4.0 H Albumin/Globulin Ratio 1.1 Venous Blood Potassium Urine Color Urine Clarity Urine pH Ur Specific Hansen Urine Protein Urine Glucose (UA) Urine Ketones Urine Blood Urine Nitrate Urine Bilirubin Urine Urobilinogen Ur Leukocyte Esterase Urine RBC (Auto) Urine Microscopic WBC Ur Squamous Epith Cells Urine Bacteria Hyaline Casts Influenza Typ A,B (EIA) Blood Type Blood Type Confirm A POSITIVE Antibody Screen BBK History Checked 08/27/18 08/27/18 08/27/18 21:35 23:44 23:50 WBC RBC Hgb Hct MCV MCH MCHC RDW Plt Count MPV Gran % Neut % (Auto) Lymph % (Auto) [place] % (Auto) Eos % (Auto) Baso % (Auto) Gran # Neut # (Auto) Lymph # (Auto) [place] # (Auto) Eos # (Auto) Baso # (Auto) Neutrophils % (Manual) Band Neutrophils % Lymphocytes % (Manual) Reactive Lymphs % Monocytes % (Manual) Eosinophils % (Manual) Basophils % (Manual) Metamyelocytes % Myelocytes % Promyelocytes % Blast Cells % Plasma Cell % (Manual) Nucleated RBC % Hypersegmented Polys Smudge Cells Toxic Granulation Dohle Bodies Aida Rods Platelet Estimate Plt Clumps, EDTA Large Platelets Giant Platelets RBC Morphology Polychromasia Hypochromasia (manual) Poikilocytosis (manual Basophilic Stippling Anisocytosis (manual) Microcytosis (manual) Macrocytosis (manual) Spherocytes Sickle Cells Target Cells Tear Drop Cells Ovalocytes Stomatocytes Helmet Cells Morrison-Ferrer [place] Bodies Abdoul Cells Acanthocytes (Spur) Rouleaux Schistocytes PT 10.2 INR 0.9 APTT 113.5 H pO2 VBG pH VBG pCO2 VBG HCO3 VBG Total CO2 VBG O2 Sat (Calc) VBG Base Excess VBG Potassium Glucose Lactate FiO2 Crit Value Called To Crit Value Called By Crit Value Read Back Blood Gas Notified Time Sodium Potassium Chloride Carbon Dioxide Anion Gap BUN Creatinine Est GFR ( Amer) Est GFR (Non-Af Amer) POC Glucose (mg/dL) Random Glucose Lactic Acid Calcium Total Bilirubin AST ALT Alkaline Phosphatase Troponin I Total Protein Albumin Globulin Albumin/Globulin Ratio Venous Blood Potassium Urine Color Yellow Urine Clarity Slighty-cloudy Urine pH 6.0 Ur Specific Hansen 1.012 Urine Protein Negative Urine Glucose (UA) Neg Urine Ketones Negative Urine Blood Negative Urine Nitrate Negative Urine Bilirubin Negative Urine Urobilinogen 0.2-1.0 Ur Leukocyte Esterase Trace Urine RBC (Auto) 3 Urine Microscopic WBC 5 Ur Squamous Epith Cells 5 Urine Bacteria Mod H Hyaline Casts 11-20 H Influenza Typ A,B (EIA) Negative for flu a/b Blood Type Blood Type Confirm Antibody Screen BBK History Checked 08/28/18 08/28/18 08/28/18 00:08 00:48 08:32 WBC RBC Hgb Hct MCV MCH MCHC RDW Plt Count MPV Gran % Neut % (Auto) Lymph % (Auto) [place] % (Auto) Eos % (Auto) Baso % (Auto) Gran # Neut # (Auto) Lymph # (Auto) [place] # (Auto) Eos # (Auto) Baso # (Auto) Neutrophils % (Manual) Band Neutrophils % Lymphocytes % (Manual) Reactive Lymphs % Monocytes % (Manual) Eosinophils % (Manual) Basophils % (Manual) Metamyelocytes % Myelocytes % Promyelocytes % Blast Cells % Plasma Cell % (Manual) Nucleated RBC % Hypersegmented Polys Smudge Cells Toxic Granulation Dohle Bodies Aida Rods Platelet Estimate Plt Clumps, EDTA Large Platelets Giant Platelets RBC Morphology Polychromasia Hypochromasia (manual) Poikilocytosis (manual Basophilic Stippling Anisocytosis (manual) Microcytosis (manual) Macrocytosis (manual) Spherocytes Sickle Cells Target Cells Tear Drop Cells Ovalocytes Stomatocytes Helmet Cells Morrison-Ferrer [place] Bodies Abdoul Cells Acanthocytes (Spur) Rouleaux Schistocytes PT INR APTT pO2 60 H VBG pH 7.38 VBG pCO2 41 VBG HCO3 24.1 VBG Total CO2 25.6 VBG O2 Sat (Calc) 93.9 H VBG Base Excess -0.8 L VBG Potassium 3.3 L Glucose 205 H Lactate 5.5 H* FiO2 21.0 Crit Value Called To Dr gema smalls Crit Value Called By Govind Crit Value Read Back Y Blood Gas Notified Time 49 Sodium 139.0 Potassium Chloride 104.0 Carbon Dioxide Anion Gap BUN Creatinine Est GFR ( Amer) Est GFR (Non-Af Amer) POC Glucose (mg/dL) Random Glucose Lactic Acid 4.6 H* 1.4 Calcium Total Bilirubin AST ALT Alkaline Phosphatase Troponin I Total Protein Albumin Globulin Albumin/Globulin Ratio Venous Blood Potassium 3.3 L Urine Color Urine Clarity Urine pH Ur Specific Hansen Urine Protein Urine Glucose (UA) Urine Ketones Urine Blood Urine Nitrate Urine Bilirubin Urine Urobilinogen Ur Leukocyte Esterase Urine RBC (Auto) Urine Microscopic WBC Ur Squamous Epith Cells Urine Bacteria Hyaline Casts Influenza Typ A,B (EIA) Blood Type Blood Type Confirm Antibody Screen BBK History Checked 08/28/18 08/28/18 09:25 09:25 WBC 14.7 H RBC 4.28 Hgb 11.7 L Hct 35.9 MCV 83.8 MCH 27.3 MCHC 32.6 L RDW 13.7 Plt Count 266 MPV Gran % Neut % (Auto) Lymph % (Auto) [place] % (Auto) Eos % (Auto) Baso % (Auto) Gran # Neut # (Auto) Lymph # (Auto) [place] # (Auto) Eos # (Auto) Baso # (Auto) Neutrophils % (Manual) Band Neutrophils % Lymphocytes % (Manual) Reactive Lymphs % Monocytes % (Manual) Eosinophils % (Manual) Basophils % (Manual) Metamyelocytes % Myelocytes % Promyelocytes % Blast Cells % Plasma Cell % (Manual) Nucleated RBC % Hypersegmented Polys Smudge Cells Toxic Granulation Dohle Bodies Aida Rods Platelet Estimate Plt Clumps, EDTA Large Platelets Giant Platelets RBC Morphology Polychromasia Hypochromasia (manual) Poikilocytosis (manual Basophilic Stippling Anisocytosis (manual) Microcytosis (manual) Macrocytosis (manual) Spherocytes Sickle Cells Target Cells Tear Drop Cells Ovalocytes Stomatocytes Helmet Cells Morrison-Ferrer [place] Bodies Abdoul Cells Acanthocytes (Spur) Rouleaux Schistocytes PT INR APTT pO2 VBG pH VBG pCO2 VBG HCO3 VBG Total CO2 VBG O2 Sat (Calc) VBG Base Excess VBG Potassium Glucose Lactate FiO2 Crit Value Called To Crit Value Called By Crit Value Read Back Blood Gas Notified Time Sodium 140 Potassium 3.1 L Chloride 100 Carbon Dioxide 28 Anion Gap 15 BUN 24 H Creatinine 1.1 Est GFR ( Amer) 59 Est GFR (Non-Af Amer) 49 POC Glucose (mg/dL) Random Glucose 166 H Lactic Acid Calcium 9.4 Total Bilirubin AST ALT Alkaline Phosphatase Troponin I Total Protein Albumin Globulin Albumin/Globulin Ratio Venous Blood Potassium Urine Color Urine Clarity Urine pH Ur Specific Hansen Urine Protein Urine Glucose (UA) Urine Ketones Urine Blood Urine Nitrate Urine Bilirubin Urine Urobilinogen Ur Leukocyte Esterase Urine RBC (Auto) Urine Microscopic WBC Ur Squamous Epith Cells Urine Bacteria Hyaline Casts Influenza Typ A,B (EIA) Blood Type Blood Type Confirm Antibody Screen BBK History Checked Assessment & Plan (1) Sepsis Status: Acute (2) UTI (urinary tract infection) Status: Acute (3) Depression Status: Acute - Assessment and Plan (Free Text) Assessment: cont IV antibiotics if fever / sepsis persist add Cefepime await cultures consider imaging / eval if no response to empiric rx
--- NOTE | 2018-08-28 13:42 | RAD ---
Date of service: 08/27/2018 HISTORY: tremors COMPARISON: 08/08/2014. TECHNIQUE: Chest PA and lateral FINDINGS: LUNGS: No active pulmonary disease. PLEURA: No significant pleural effusion identified. No pneumothorax apparent. CARDIOVASCULAR: No aortic atherosclerotic calcification present. Normal cardiac size. No pulmonary vascular congestion. OSSEOUS STRUCTURES: No significant abnormalities. VISUALIZED UPPER ABDOMEN: Normal. OTHER FINDINGS: None. IMPRESSION: No active disease. No significant interval change compared to the prior examination(s).
[2018-08-28 13:48] LABS: VENOUS BLOOD GAS BASE EXCESS -2.7 mmol/L (0.0-2.0); VENOUS BLOOD GAS PCO2 40 mmHg (40-60); VENOUS BLOOD GAS PO2 56 mm/Hg (30-55); VENOUS BLOOD PH 7.36 (7.32-7.43)
[2018-08-28] MEDS: Metoprolol Succinate 50 mg XL Tab PO SCH (14:08)
--- NOTE | 2018-08-28 19:47 | CARD ---
APPROVED REPORT Date of service: 08/27/2018 EKG Measurement Heart [id number] <Conclusion> Normal sinus rhythm Inferior infarct, age undetermined Poor R wave progression Abnormal ECG
[2018-08-28] MEDS: LATUDA 120 MG PO SCH (21:14)
[2018-08-29 08:16] LABS: ALB/GLOB RATIO 1.1 (1.0-2.1); ALBUMIN 3.9 g/dL (3.5-5.0)
[2018-08-29 08:17] LABS: MEAN CELL VOLUME 83.1 fl (81.0-99.0); MEAN CORPUSCULAR HGB CONC 32.5 g/dL (33.0-37.0); RBC 4.43 Mil/uL (3.80-5.20); RED CELL DISTRIBUTION WIDTH 14.1 % (11.5-14.5); WHITE BLOOD COUNT 11.9 K/uL (4.8-10.8)
[2018-08-29] MEDS: HCTZ/Losartan 12.5/50 Tab PO SCH (08:59)
[2018-08-29] MEDS: Metoprolol Succinate 50 mg XL Tab PO SCH (09:04)
[2018-08-29] MEDS: Sodium Chloride 0.9% 1,000 ML IV SCH (09:13)
[2018-08-29] MEDS: levoFLOXacin 750 mg in D5W 750 MG/150 ML BAG IVPB SCH (09:15)
[2018-08-29] MEDS ORDERED: Potassium Chloride 20 mEq ER Tab PO ONE (10:13)
[2018-08-29] MEDS: LATUDA 120 MG PO SCH (21:35)
[2018-08-30 06:45] LABS: HEMOGLOBIN 11.6 g/dL (12.0-16.0); MEAN CELL VOLUME 83.3 fl (81.0-99.0); MEAN CORPUSCULAR HEMOGLOBIN 27.5 pg (27.0-31.0); MEAN CORPUSCULAR HGB CONC 33.1 g/dL (33.0-37.0); RBC 4.2 Mil/uL (3.80-5.20); RED CELL DISTRIBUTION WIDTH 14.1 % (11.5-14.5); WHITE BLOOD COUNT 12.2 K/uL (4.8-10.8)
[2018-08-30 07:02] LABS: ALB/GLOB RATIO 1.1 (1.0-2.1); ALBUMIN 3.8 g/dL (3.5-5.0)
[2018-08-30] MEDS: levoFLOXacin 750 mg in D5W 750 MG/150 ML BAG IVPB SCH (09:00)
[2018-08-30] MEDS: HCTZ/Losartan 12.5/50 Tab PO SCH (09:02)
[2018-08-30] MEDS: Metoprolol Succinate 50 mg XL Tab PO SCH (09:02)
--- NOTE | 2018-08-30 14:43 | CP.PCM.PN ---
Subjective - Date & Time of Evaluation Date of Evaluation: 08/30/18 Time of Evaluation: 07:00 - Subjective Subjective: slowly improving denies fever Objective - Vital Signs/Intake and Output Vital Signs (last 24 hours): Temp Pulse Resp BP Pulse Ox 97.8 F 78 18 145/80 97 08/30/18 11:51 08/30/18 11:51 08/30/18 11:51 08/30/18 11:51 08/30/18 11:51 - Medications Medications: Current Medications Amlodipine Besylate (Norvasc) 5 mg PO DAILY [facility] Last Admin: 08/30/18 09:01 Dose: 5 mg Aspirin (Aspirin Chewable) 81 mg PO DAILY [facility] Last Admin: 08/30/18 09:02 Dose: 81 mg Escitalopram Oxalate (Lexapro) 20 mg PO HS [facility] Last Admin: 08/29/18 21:35 Dose: 20 mg Glipizide (Glucotrol) 5 mg PO ACB [facility] Last Admin: 08/30/18 09:02 Dose: 5 mg HCTZ/Losartan Potassium (Hyzaar 12.5 Mg-50 Mg) 2 tab PO DAILY [facility] Last Admin: 08/30/18 09:02 Dose: 2 tab Home Med (Patient's Own Medication) 1 unit PO HS [facility] Last Admin: 08/29/18 21:35 Dose: 1 unit Levofloxacin/Dextrose (Levaquin 750mg) 750 mg in 150 mls @ 100 mls/hr IVPB [facility] Last Admin: 08/30/18 09:00 Dose: 100 mls/hr Lorazepam (Ativan) 2 mg PO DAILY [facility] Last Admin: 08/30/18 09:00 Dose: 2 mg Memantine (Namenda) 10 mg PO BID [facility] Last Admin: 08/30/18 09:02 Dose: 10 mg Metformin HCl (Glucophage) 1,000 mg PO BIDWM [facility] Last Admin: 08/30/18 09:02 Dose: 1,000 mg Metoprolol Succinate (Toprol Xl) 50 mg PO DAILY [facility] Last Admin: 08/30/18 09:02 Dose: 50 mg Quetiapine Fumarate (Seroquel) 400 mg PO DAILY [facility] Last Admin: 08/30/18 09:01 Dose: 400 mg Sitagliptin Phosphate (Januvia) 100 mg PO DAILY [facility] Last Admin: 08/30/18 09:01 Dose: 100 mg Trazodone HCl (Desyrel) 100 mg PO HS [facility] Last Admin: 08/29/18 21:35 Dose: 100 mg - Labs Labs: 08/30/18 06:00 08/30/18 06:00 PT 10.2 Seconds (9.8-13.1) 08/27/18 21:35 INR 0.9 08/27/18 21:35 APTT 113.5 Seconds (25.6-37.1) H 08/27/18 21:35 - Constitutional Appears: Non-toxic - Head Exam Head Exam: NORMOCEPHALIC - Eye Exam Eye Exam: PERRL - ENT Exam ENT Exam: Mucous Membranes Dry - Neck Exam Neck Exam: absent: Lymphadenopathy - Respiratory Exam Respiratory Exam: Decreased Breath Sounds - Cardiovascular Exam Cardiovascular Exam: REGULAR RHYTHM, +S1, +S2 - GI/Abdominal Exam GI & Abdominal Exam: Distended, Soft. absent: Tenderness - Rectal Exam Rectal Exam: Deferred - Exam Exam: NORMAL INSPECTION - Extremities Exam Extremities Exam: absent: Calf Tenderness - Back Exam Back Exam: absent: CVA tenderness (L), CVA tenderness (R) - Neurological Exam Neurological Exam: Alert, Awake, CN II-XII Intact Assessment and Plan (1) Sepsis Status: Acute (2) UTI (urinary tract infection) Status: Acute (3) Depression Status: Acute - Assessment and Plan (Free Text) Assessment: cont rx as per Dr Hurleyuez
[2018-08-30] MEDS: Potassium Chloride 20 mEq ER Tab PO ONE ×3 (20:00→21:26)
[2018-08-30] MEDS: LATUDA 120 MG PO SCH ×2 (21:07→21:26)
--- NOTE | 2018-08-30 22:12 | CP.PCM.PN ---
Subjective - Date & Time of Evaluation Date of Evaluation: 08/29/18 Time of Evaluation: 11:00 - Subjective Subjective: patient seen and examined at bedside. no acute events overnight interim events noted no complaints offered at this time lactic acidosis has improved ID following Objective - Vital Signs/Intake and Output Vital Signs (last 24 hours): Temp Pulse Resp BP Pulse Ox 98.1 F 81 20 137/78 96 08/30/18 19:56 08/30/18 19:56 08/30/18 19:56 08/30/18 19:56 08/30/18 19:56 - Medications Medications: Current Medications Amlodipine Besylate (Norvasc) 5 mg PO DAILY [facility] Last Admin: 08/30/18 09:01 Dose: 5 mg Aspirin (Aspirin Chewable) 81 mg PO DAILY [facility] Last Admin: 08/30/18 09:02 Dose: 81 mg Escitalopram Oxalate (Lexapro) 20 mg PO HS [facility] Last Admin: 08/30/18 21:24 Dose: Not Given Glipizide (Glucotrol) 5 mg PO ACB [facility] Last Admin: 08/30/18 09:02 Dose: 5 mg HCTZ/Losartan Potassium (Hyzaar 12.5 Mg-50 Mg) 2 tab PO DAILY [facility] Last Admin: 08/30/18 09:02 Dose: 2 tab Home Med (Patient's Own Medication) 1 unit PO HS [facility] Last Admin: 08/30/18 21:26 Dose: Not Given Levofloxacin/Dextrose (Levaquin 750mg) 750 mg in 150 mls @ 100 mls/hr IVPB DAILY [facility] Last Admin: 08/30/18 09:00 Dose: 100 mls/hr Lorazepam (Ativan) 2 mg PO DAILY [facility] Last Admin: 08/30/18 09:00 Dose: 2 mg Memantine (Namenda) 10 mg PO BID [facility] Last Admin: 08/30/18 17:14 Dose: 10 mg Metformin HCl (Glucophage) 1,000 mg PO BIDWM [facility] Last Admin: 08/30/18 17:14 Dose: 1,000 mg Metoprolol Succinate (Toprol Xl) 50 mg PO DAILY [facility] Last Admin: 08/30/18 09:02 Dose: 50 mg Quetiapine Fumarate (Seroquel) 400 mg PO DAILY [facility] Last Admin: 08/30/18 09:01 Dose: 400 mg Sitagliptin Phosphate (Januvia) 100 mg PO DAILY [facility] Last Admin: 08/30/18 09:01 Dose: 100 mg Trazodone HCl (Desyrel) 100 mg PO [facility] Last Admin: 08/30/18 21:24 Dose: Not Given - Labs Labs: 08/30/18 06:00 08/30/18 06:00 PT 10.2 Seconds (9.8-13.1) 08/27/18 21:35 INR 0.9 08/27/18 21:35 APTT 113.5 Seconds (25.6-37.1) H 08/27/18 21:35 - Constitutional Appears: Non-toxic - Head Exam Head Exam: NORMAL INSPECTION - Eye Exam Eye Exam: Normal appearance - Neck Exam Neck Exam: Normal Inspection - Respiratory Exam Respiratory Exam: NORMAL BREATHING PATTERN - Cardiovascular Exam Cardiovascular Exam: +S1, +S2 - GI/Abdominal Exam GI & Abdominal Exam: Soft, Normal Bowel Sounds. absent: Tenderness - Neurological Exam Neurological Exam: Alert, Awake - Psychiatric Exam Psychiatric exam: Normal Affect, Normal Mood - Skin Skin Exam: Normal Color, Warm Assessment and Plan - Assessment and Plan (Free Text) Assessment: 73 year old female w/ PMHx of HTN, hypercholesterolemia, diabetes, depression, anxiety and dementia admitted for severe sepsis likely due to UTI. plan IV abx IVF monitor labs monitor vitals ID consult apprecaited PT eval follow up cultures rest of plan as ordered
--- NOTE | 2018-08-30 22:14 | CP.PCM.PN ---
Subjective - Date & Time of Evaluation Date of Evaluation: 08/30/18 Time of Evaluation: 11:00 - Subjective Subjective: patient seen and examined at bedside. no acute events overnight interim events noted no complaints offered at this time ID following Objective - Vital Signs/Intake and Output Vital Signs (last 24 hours): Temp Pulse Resp BP Pulse Ox 98.1 F 81 20 137/78 96 08/30/18 19:56 08/30/18 19:56 08/30/18 19:56 08/30/18 19:56 08/30/18 19:56 - Medications Medications: Current Medications Amlodipine Besylate (Norvasc) 5 mg PO DAILY [facility] Last Admin: 08/30/18 09:01 Dose: 5 mg Aspirin (Aspirin Chewable) 81 mg PO DAILY [facility] Last Admin: 08/30/18 09:02 Dose: 81 mg Escitalopram Oxalate (Lexapro) 20 mg PO HS [facility] Last Admin: 08/30/18 21:24 Dose: Not Given Glipizide (Glucotrol) 5 mg PO ACB [facility] Last Admin: 08/30/18 09:02 Dose: 5 mg HCTZ/Losartan Potassium (Hyzaar 12.5 Mg-50 Mg) 2 tab PO DAILY [facility] Last Admin: 08/30/18 09:02 Dose: 2 tab Home Med (Patient's Own Medication) 1 unit PO HS [facility] Last Admin: 08/30/18 21:26 Dose: Not Given Levofloxacin/Dextrose (Levaquin 750mg) 750 mg in 150 mls @ 100 mls/hr IVPB DAILY [facility] Last Admin: 08/30/18 09:00 Dose: 100 mls/hr Lorazepam (Ativan) 2 mg PO DAILY [facility] Last Admin: 08/30/18 09:00 Dose: 2 mg Memantine (Namenda) 10 mg PO BID [facility] Last Admin: 08/30/18 17:14 Dose: 10 mg Metformin HCl (Glucophage) 1,000 mg PO BIDWM [facility] Last Admin: 08/30/18 17:14 Dose: 1,000 mg Metoprolol Succinate (Toprol Xl) 50 mg PO DAILY [facility] Last Admin: 08/30/18 09:02 Dose: 50 mg Quetiapine Fumarate (Seroquel) 400 mg PO DAILY [facility] Last Admin: 08/30/18 09:01 Dose: 400 mg Sitagliptin Phosphate (Januvia) 100 mg PO DAILY [facility] Last Admin: 08/30/18 09:01 Dose: 100 mg Trazodone HCl (Desyrel) 100 mg PO HS [facility] Last Admin: 08/30/18 21:24 Dose: Not Given - Labs Labs: 08/30/18 06:00 08/30/18 06:00 PT 10.2 Seconds (9.8-13.1) 08/27/18 21:35 INR 0.9 08/27/18 21:35 APTT 113.5 Seconds (25.6-37.1) H 08/27/18 21:35 - Additional Findings Additional findings: - Constitutional Appears: Non-toxic - Head Exam Head Exam: NORMAL INSPECTION - Eye Exam Eye Exam: Normal appearance - Neck Exam Neck Exam: Normal Inspection - Respiratory Exam Respiratory Exam: NORMAL BREATHING PATTERN - Cardiovascular Exam Cardiovascular Exam: +S1, +S2 - GI/Abdominal Exam GI & Abdominal Exam: Soft, Normal Bowel Sounds. absent: Tenderness - Neurological Exam Neurological Exam: Alert, Awake - Psychiatric Exam Psychiatric exam: Normal Affect, Normal Mood - Skin Skin Exam: Normal Color, Warm Assessment and Plan - Assessment and Plan (Free Text) Assessment: 73 year old female w/ PMHx of HTN, hypercholesterolemia, diabetes, depression, anxiety and dementia admitted for severe sepsis likely due to UTI. plan IV abx IVF monitor labs monitor vitals ID consult appreciated PT eval - recommends home w/ services follow up cultures, neg so far dispo planning rest of plan as ordered
[2018-08-31 05:34] LABS: HEMOGLOBIN 12.2 g/dL (12.0-16.0); MEAN CELL VOLUME 83.1 fl (81.0-99.0); MEAN CORPUSCULAR HEMOGLOBIN 27.3 pg (27.0-31.0); MEAN CORPUSCULAR HGB CONC 32.9 g/dL (33.0-37.0); RBC 4.47 Mil/uL (3.80-5.20); WHITE BLOOD COUNT 13.4 K/uL (4.8-10.8)
[2018-08-31 05:47] LABS: CALCIUM 9.9 mg/dL (8.4-10.2)
[2018-08-31 07:49] VITALS: RESP 20
[2018-08-31] MEDS ORDERED: levoFLOXacin 750 mg in D5W 150 ML BAG IVPB SCH (10:15)
[2018-08-31] MEDS: HCTZ/Losartan 12.5/50 Tab PO SCH (10:19)
[2018-08-31] MEDS: Metoprolol Succinate 50 mg XL Tab PO SCH (10:20)
[2018-08-31] MEDS: levoFLOXacin 750 mg in D5W 750 MG/150 ML BAG IVPB SCH (10:31)
--- NOTE | 2018-08-31 12:41 | CP.PCM.PCO ---
Assessment & Plan - Assessment and Plan (Free Text) Assessment: patient doing well; wbc decreased to 13.4, lactate 1.4 patient and family at bedside aggreable to cont. IV abx Levaquin x 1 week in TCU Cleared by for d/c
[2018-08-31] MEDS ORDERED: Lactulose 10 gm/15 ml Syrup PO PRN (13:59)
[2018-08-31 15:50] VITALS: BP 127/81; PULSE 86; TEMP 98.2; O2SAT 97
[2018-09-01] MEDS ORDERED: levoFLOXacin 750 mg in D5W 750 MG/150 ML BAG IVPB SCH (09:00)
--- NOTE | 2018-09-06 22:03 | PQF ---
PROVIDER RESPONSE TEXT: hypokalemia REVIEWER QUERY TEXT: Medication Correlation for Diagnosis Your help is needed in capturing diagnoses for the corresponding medications ordered. Please clarify in the documentation diagnoses for the following medication. Medications: Potassium Chloride 40 meq PO once K:3.4->3.1->3.3->3.5-.3.9 The patient's Clinical Indicators include: -- Query created by: Amarilys Amato on 08/31/2018 11:57 AM Electronically signed by: Tera Agee 09/06/2018 10:00 PM
--- NOTE | 2018-09-07 11:36 | PQF ---
PROVIDER RESPONSE TEXT: Acute on chronic kidney disease REVIEWER QUERY TEXT: Clinical Significance Is there an associated dx. to go along with the following chemistry labs: in a pt. admitted for Sepsi s and found to have severe lactic acidosis with possible source of infection in the urine: Creatinine: 1.8->1.1->1.1>1.1->1.1->1.3 Est GFR Afr Amer;33->59->59->59->49 Est GFR Non-Af Amer):28->49->49->49->49->40 --Disagree; OR: Please respond and also state in your next progress note the condition and if the condition is: --- Acute -- Chronic -- Acute on chronic -- Other, please specify ---OR: Unable to determine clinical significance -- Other, please specify ER note includes; --2L NS ordered after elevated lactate of 8 (manually placed in computer by nurse marcus holdene to VBG- [employer] interface error earlier) -ABx ordered empirically --Signs of UTI --Second lactic acid is 5.5 on VBG, will continue to hydrate Clinical Impression: UTI (urinary tract infection), Sepsis H and P includes: admitted for severe sepsis likely due to UTI (2) UTI (urinary tract infection) Status: Acute (3) Depression Status: Acute Assessment:cont IV antibiotics if fever / sepsis persist add Cefepime await cultures consider imaging / eval if no response to empiric rx 08/29 Attending progress note: lactic acidosis has improved The patient's Clinical Indicators include: -- Query created by: Amarilys Amato on 08/31/2018 12:08 PM Electronically signed by: Tera Agee 09/07/2018 11:32 AM
--- NOTE | 2018-09-07 11:36 | CP.PCM.DIS ---
Provider - Provider Date of Admission: 08/28/18 00:52 Attending physician: Tera Agee MD Consults: 08/28/18 09:46 Infectious Disease Consult Routine Comment: Consulting Provider: Merritt Sherman Consulting Physician: Merritt Sherman Reason for Consult: severe sepsis Time Spent in preparation of Discharge (in minutes): 30 Diagnosis - Discharge Diagnosis (1) Sepsis Status: Resolved (2) UTI (urinary tract infection) Status: Acute Hospital Course - Lab Results Lab Results: Micro Results 08/28/18 00:40 Blood Blood Culture - Final NO GROWTH AFTER 5 DAYS 08/28/18 00:40 Blood Gram Stain - Final TEST NOT PERFORMED 08/28/18 01:10 Blood Blood Culture - Final NO GROWTH AFTER 5 DAYS 08/28/18 01:10 Blood Gram Stain - Final TEST NOT PERFORMED 08/27/18 23:30 Urine Urine Culture - Final No Growth (<1,000 CFU/ML) Most Recent Lab Values WBC 13.4 K/uL (4.8-10.8) H 08/31/18 04:25 RBC 4.47 Mil/uL (3.80-5.20) 08/31/18 04:25 Hgb 12.2 g/dL (12.0-16.0) 08/31/18 04:25 Hct 37.2 % (34.0-47.0) 08/31/18 04:25 MCV 83.1 fl (81.0-99.0) 08/31/18 04:25 MCH 27.3 pg (27.0-31.0) 08/31/18 04:25 MCHC 32.9 g/dL (33.0-37.0) L 08/31/18 04:25 RDW 14.0 % (11.5-14.5) 08/31/18 04:25 Plt Count 273 K/uL (130-400) 08/31/18 04:25 MPV 9.5 fl (7.2-11.7) 08/27/18 21:29 Gran % Cancelled 08/27/18 20:43 Neut % (Auto) 88.6 % (50.0-75.0) H 08/27/18 21:29 Lymph % (Auto) 5.5 % (20.0-40.0) L 08/27/18 21:29 [place] % (Auto) 5.5 % (0.0-10.0) 08/27/18 21: Eos % (Auto) 0.1 % (0.0-4.0) 08/27/18 21: Baso % (Auto) 0.3 % (0.0-2.0) 08/27/18 21:29 Gran # Cancelled 08/27/18 20:43 Neut # (Auto) 15.2 K/uL (1.8-7.0) H 08/27/18 21:29 Lymph # (Auto) 0.9 K/uL (1.0-4.3) L 08/27/18 21:29 [place] # (Auto) 0.9 K/uL (0.0-0.8) H 08/27/18 21:29 Eos # (Auto) 0.0 K/uL (0.0-0.7) 08/27/18 21:29 Baso # (Auto) 0.0 K/uL (0.0-0.2) 08/27/18 21:29 Neutrophils % (Manual) 88 % (42-75) H 08/27/18 21:29 Band Neutrophils % Cancelled 08/27/18 20:43 Lymphocytes % (Manual) 9 % (20-50) L 08/27/18 21:29 Reactive Lymphs % Cancelled 08/27/18 20:43 Monocytes % (Manual) 3 % (0-10) 08/27/18 21:29 Eosinophils % (Manual) Cancelled 08/27/18 20:43 Basophils % (Manual) Cancelled 08/27/18 20:43 Metamyelocytes % Cancelled 08/27/18 20:43 Myelocytes % Cancelled 08/27/18 20:43 Promyelocytes % Cancelled 08/27/18 20:43 Blast Cells % Cancelled 08/27/18 20:43 Plasma Cell % (Manual) Cancelled 08/27/18 20:43 Nucleated RBC % Cancelled 08/27/18 20:43 Hypersegmented Polys Present 08/27/18 21:29 Smudge Cells Cancelled 08/27/18 20:43 Toxic Granulation Cancelled 08/27/18 20:43 Dohle Bodies Cancelled 08/27/18 20:43 Aida Rods Cancelled 08/27/18 20:43 Platelet Estimate Normal (NORMAL) 08/27/18 21:29 Plt Clumps, EDTA Cancelled 08/27/18 20:43 Large Platelets Cancelled 08/27/18 20:43 Giant Platelets Cancelled 08/27/18 20:43 RBC Morphology Cancelled 08/27/18 20:43 Polychromasia Cancelled 08/27/18 20:43 Hypochromasia (manual) Slight 08/27/18 21:29 Poikilocytosis (manual Cancelled 08/27/18 20:43 Basophilic Stippling Cancelled 08/27/18 20:43 Anisocytosis (manual) Cancelled 08/27/18 20:43 Microcytosis (manual) Slight 08/27/18 21:29 Macrocytosis (manual) Cancelled 08/27/18 20:43 Spherocytes Cancelled 08/27/18 20:43 Sickle Cells Cancelled 08/27/18 20:43 Target Cells Cancelled 08/27/18 20:43 Tear Drop Cells Cancelled 08/27/18 20:43 Ovalocytes Cancelled 08/27/18 20:43 Stomatocytes Cancelled 08/27/18 20:43 Helmet Cells Cancelled 08/27/18 20:43 [place] Bodies Cancelled 08/27/18 20:43 [place] Cells Cancelled 08/27/18 20:43 Acanthocytes (Spur) Cancelled 08/27/18 20:43 Rouleaux Cancelled 08/27/18 20:43 Schistocytes Cancelled 08/27/18 20:43 PT 10.2 Seconds (9.8-13.1) 08/27/18 21:35 INR 0.9 08/27/18 21:35 APTT 113.5 Seconds (25.6-37.1) H 08/27/18 21:35 pO2 60 mm/Hg (30-55) H 08/28/18 00:08 VBG pH 7.38 (7.32-7.43) 08/28/18 00:08 VBG pCO2 41 mmHg (40-60) 08/28/18 00:08 VBG HCO3 24.1 mmol/L 08/28/18 00:08 VBG Total CO2 25.6 mmol/L (22-28) 08/28/18 00:08 VBG O2 Sat (Calc) 93.9 % (40-65) H 08/28/18 00:08 VBG Base Excess -0.8 mmol/L (0.0-2.0) L 08/28/18 00:08 VBG Potassium 3.3 mmol/L (3.6-5.2) L 08/28/18 00:08 Sodium 139.0 mmol/L (132-148) 08/28/18 00:08 Chloride 104.0 mmol/L (98-107) 08/28/18 00:08 Glucose 205 mg/dL (65-105) H 08/28/18 00:08 Lactate 5.5 mmol/L (0.7-2.1) H* 08/28/18 00:08 FiO2 21.0 % 08/28/18 00:08 Crit Value Called To Dr gema smalls 08/28/18 00:08 Crit Value Called By Govind 08/28/18 00:08 Crit Value Read Back Y 08/28/18 00:08 Blood Gas Notified Time 49 08/28/18 00:08 Sodium 139 mmol/l (132-148) 08/31/18 04:25 Potassium 3.9 MMOL/L (3.6-5.0) 08/31/18 04:25 Chloride 100 mmol/L (98-107) 08/31/18 04:25 Carbon Dioxide 27 mmol/L (22-30) 08/31/18 04:25 Anion Gap 16 (10-20) 08/31/18 04:25 BUN 24 mg/dl (7-17) H 08/31/18 04:25 Creatinine 1.3 mg/dl (0.7-1.2) H 08/31/18 04:25 Est GFR ( Amer) 49 08/31/18 04:25 Est GFR (Non-Af Amer) 40 08/31/18 04:25 POC Glucose (mg/dL) 250 mg/dL (65-110) H 08/31/18 10:56 Random Glucose 155 mg/dL (65-105) H 08/31/18 04:25 Hemoglobin A1c 7.2 % (4.2-6.5) H 08/28/18 11:28 Lactic Acid 1.4 MMOL/L (0.7-2.1) 08/28/18 08:32 Calcium 9.9 mg/dL (8.4-10.2) 08/31/18 04:25 Total Bilirubin 0.8 mg/dl (0.2-1.3) 08/30/18 06:00 AST 21 U/L (14-36) 08/30/18 06:00 ALT 16 U/L (9-52) 08/30/18 06:00 Alkaline Phosphatase 79 U/L (38-126) 08/30/18 06:00 Troponin I < 0.0120 ng/mL (0.00-0.120) 08/27/18 20:53 Total Protein 7.2 G/DL (6.3-8.2) 08/30/18 06:00 Albumin 3.8 g/dL (3.5-5.0) 08/30/18 06:00 Globulin 3.4 gm/dL (2.2-3.9) 08/30/18 06:00 Albumin/Globulin Ratio 1.1 (1.0-2.1) 08/30/18 06:00 Procalcitonin < 0.05 NG/ML (0.19-0.49) L 08/28/18 10:36 Venous Blood Potassium 3.3 mmol/L (3.6-5.2) L 08/28/18 00:08 Urine Color Yellow (YELLOW) 08/27/18 23:50 Urine Clarity Slighty-cloudy (Clear) 08/27/18 23:50 Urine pH 6.0 (5.0-8.0) 08/27/18 23:50 Ur Specific [place] 1.012 (1.003-1.030) 08/27/18 23:50 Urine Protein Negative mg/dL (NEGATIVE) 08/27/18 23:50 Urine Glucose (UA) Neg mg/dL (Normal) 08/27/18 23:50 Urine Ketones Negative mg/dL (NEGATIVE) 08/27/18 23:50 Urine Blood Negative (NEGATIVE) 08/27/18 23:50 Urine Nitrate Negative (NEGATIVE) 08/27/18 23:50 Urine Bilirubin Negative (NEGATIVE) 08/27/18 23:50 Urine Urobilinogen 0.2-1.0 mg/dL (0.2-1.0) 08/27/18 23:50 Ur Leukocyte Esterase Trace Woo/uL (Negative) 08/27/18 23:50 Urine RBC (Auto) 3 /hpf (0-3) 08/27/18 23:50 Urine Microscopic WBC 5 /hpf (0-5) 08/27/18 23:50 Ur Squamous Epith Cells 5 /hpf (0-5) 08/27/18 23:50 Urine Bacteria Mod (<OCC) H 08/27/18 23:50 Hyaline Casts 11-20 /hpf (0-2) H 08/27/18 23:50 Influenza Typ A,B (EIA) Negative for flu a/b (NEGATIVE) 08/27/18 23:44 Blood Type A POSITIVE 08/27/18 20:44 Blood Type Confirm A POSITIVE 08/27/18 21:29 Antibody Screen Negative 08/27/18 20:44 BBK History Checked No verified bt 08/27/18 20:44 - Hospital Course Hospital Course: 73 year old female w/ PMHx of HTN, hypercholesterolemia, diabetes, depression, anxiety and dementia presented to ED due to generalized weakness and tremors onset for 2-3 days. Patient was found to have severe lactic acidosis with possible source of infection in urine. Patient was given IVF and IV abx and has improved. Patient was discharged to TCU for further IV abx. Discharge Exam - Head Exam Head Exam: NORMAL INSPECTION - Eye Exam Eye Exam: Normal appearance - Respiratory Exam Respiratory Exam: NORMAL BREATHING PATTERN - Cardiovascular Exam Cardiovascular Exam: +S1, +S2 - Neurological Exam Neurological exam: Alert - Psychiatric Exam Psychiatric exam: Normal Affect, Normal Mood - Skin Skin Exam: Normal Color, Warm Discharge Plan - Discharge Medications Prescriptions: levoFLOXacin 750 mg in D5W [Levaquin 750MG] 750 mg IVPB DAILY #6 bag - Follow Up Plan Condition: IMPROVED Disposition: TRANSF TO SNF Instructions: Urinary Tract Infection, Adult (DC) Referrals: Tera Agee MD [Medical Doctor] - Merritt Sherman MD [Staff Provider] -
== END 2018-08-31 15:50 | DRG 872 ==
LOC: H.ER 18:15 → H.ERHOLD 08-28 00:52 → H.TEL 08-28 03:20
PROVIDERS: ADMIT Family Medicine; ATTEND Family Medicine
DX: A41.9 Sepsis, unspecified organism (principal); N39.0 Urinary tract infection, site not specified; E87.2 Acidosis; R65.20 Severe sepsis without septic shock; E78.00 Pure hypercholesterolemia, unspecified; F03.90 Unspecified dementia, unspecified severity, without behavioral disturbance, psychotic disturbance, mood disturbance, and anxiety; F32.9 Major depressive disorder, single episode, unspecified; F41.9 Anxiety disorder, unspecified; H70.91 Unspecified mastoiditis, right ear; E87.6 Hypokalemia; N18.9 Chronic kidney disease, unspecified; I12.9 Hypertensive chronic kidney disease with stage 1 through stage 4 chronic kidney disease, or unspecified chronic kidney disease; E11.22 Type 2 diabetes mellitus with diabetic chronic kidney disease

== ENCOUNTER 2018-08-31 14:53 | Inpatient (IN) | payer OTHER, MEDICAID ==
[2018-08-31] MEDS ORDERED: Lactulose 10 gm/15 ml Syrup PO PRN (16:21)
[2018-08-31] MEDS: levoFLOXacin 750 mg in D5W 750 MG/150 ML BAG IVPB SCH (17:05)
[2018-08-31 21:12] VITALS: RESP 20
[2018-08-31] MEDS: LATUDA 120 MG PO SCH (22:11)
[2018-09-01 06:17] LABS: HEMOGLOBIN 11.3 g/dL (12.0-16.0); MEAN CELL VOLUME 84.1 fl (81.0-99.0); MEAN CORPUSCULAR HEMOGLOBIN 27.7 pg (27.0-31.0); RBC 4.08 Mil/uL (3.80-5.20); RED CELL DISTRIBUTION WIDTH 13.9 % (11.5-14.5)
[2018-09-01 06:34] LABS: INR 1.1; PROTHROMBIN TIME 12.4 Seconds (9.8-13.1)
[2018-09-01 06:37] LABS: PARTIAL THROMBOPLASTIN TIME 30.3 Seconds (25.6-37.1)
[2018-09-01 06:49] LABS: ALB/GLOB RATIO 1.2 (1.0-2.1); ALBUMIN 3.7 g/dL (3.5-5.0); CALCIUM 10.2 mg/dL (8.4-10.2)
[2018-09-01] MEDS: HCTZ/Losartan 12.5/50 Tab PO SCH (08:36)
[2018-09-01] MEDS: Metoprolol Succinate 50 mg XL Tab PO SCH (08:37)
[2018-09-01] MEDS ORDERED: Pneumococcal 23-Valent Vaccine IM ONE (09:00)
[2018-09-01 16:20] VITALS: BMI 41.1
[2018-09-01] MEDS: levoFLOXacin 750 mg in D5W 750 MG/150 ML BAG IVPB SCH (16:35)
--- NOTE | 2018-09-01 17:36 | CP.PCM.HP ---
<Chelita Marley - Last Filed: 09/01/18 17:36> History of Present Illness - History of Present Illness History of Present Illness: 73 year old female w/ PMHx of HTN, hypercholesterolemia, diabetes, depression, anxiety and dementia recently admitted for Sepsis w/ lactic acidosis likely from UTI. Cultures have all been negative so far. Pt discharged on Levofloxacin. Now being admitted to TCU for gait training, mobility, and strength. Will consult ID, PMD: Ray De Los Santos Present on Admission - Present on Admission Any Indicators Present on Admission: No Past Patient History - Past Medical History & Family History Past Medical History?: Yes - Past Social History Smoking Status: Former Smoker - CARDIAC Hx Cardiac Disorders: Yes Hx Hypercholesterolemia: Yes Hx Hypertension: Yes - PULMONARY Hx Respiratory Disorders: No - NEUROLOGICAL Hx Neurological Disorder: Yes Hx Dementia: Yes - HEENT Hx HEENT Problems: No - RENAL Hx Chronic Kidney Disease: No - ENDOCRINE/METABOLIC Hx Endocrine Disorders: Yes Hx Diabetes Mellitus Type 2: Yes - HEMATOLOGICAL/ONCOLOGICAL Hx Blood Disorders: No - INTEGUMENTARY Hx Dermatological Problems: No - MUSCULOSKELETAL/RHEUMATOLOGICAL Hx Falls: Yes - GASTROINTESTINAL Hx Gastrointestinal Disorders: No - GENITOURINARY/GYNECOLOGICAL Hx Genitourinary Disorders: No - PSYCHIATRIC Hx Substance Use: No - SURGICAL HISTORY Hx Surgeries: Yes Hx Cardiac Catheterization: Yes Hx Section: Yes - ANESTHESIA Hx Anesthesia: Yes Hx Anesthesia Reactions: No Meds Allergies/Adverse Reactions: Allergies Allergy/AdvReac Type Severity Reaction Status Date / Time No Known Allergies Allergy Verified 08/31/18 15:09 Physical Exam - Constitutional Appears: No Acute Distress - Head Exam Head Exam: NORMAL INSPECTION - Eye Exam Eye Exam: Normal appearance - ENT Exam ENT Exam: Mucous Membranes Moist - Respiratory Exam Respiratory Exam: Clear to Auscultation Bilateral. absent: Rales, Wheezes - Cardiovascular Exam Cardiovascular Exam: REGULAR RHYTHM, +S1, +S2 - GI/Abdominal Exam GI & Abdominal Exam: Normal Bowel Sounds, Soft. absent: Tenderness - Extremities Exam Extremities exam: Positive for: normal inspection. Negative for: calf tenderness - Neurological Exam Neurological exam: Alert - Psychiatric Exam Psychiatric exam: Normal Affect - Skin Skin Exam: Normal Color Results - Vital Signs Recent Vital Signs: Last Vital Signs Temp 98.6 F 09/01/18 16:29 Pulse 77 09/01/18 16:29 Resp 20 09/01/18 16:29 BP 135/73 09/01/18 16:29 Pulse Ox 96 09/01/18 16:29 - Labs Result Diagrams: 09/01/18 06:00 09/01/18 06:00 Labs: Laboratory Results - last 24 hr 08/31/18 09/01/18 09/01/18 21:42 05:29 05:50 WBC RBC Hgb Hct MCV MCH MCHC RDW Plt Count PT 12.4 INR 1.1 APTT 30.3 Sodium Potassium Chloride Carbon Dioxide Anion Gap BUN Creatinine Est GFR ( Amer) Est GFR (Non-Af Amer) POC Glucose (mg/dL) 143 H 149 H Random Glucose Calcium Total Bilirubin AST ALT Alkaline Phosphatase Total Protein Albumin Globulin Albumin/Globulin Ratio 09/01/18 09/01/18 09/01/18 06:00 06:00 10:58 WBC 11.0 H RBC 4.08 Hgb 11.3 L Hct 34.3 MCV 84.1 MCH 27.7 MCHC 33.0 RDW 13.9 Plt Count 269 PT INR APTT Sodium 138 Potassium 3.8 Chloride 98 Carbon Dioxide 27 Anion Gap 17 BUN 31 H Creatinine 1.4 H Est GFR ( Amer) 45 Est GFR (Non-Af Amer) 37 POC Glucose (mg/dL) 206 H Random Glucose 151 H Calcium 10.2 Total Bilirubin 0.7 AST 17 ALT 24 Alkaline Phosphatase 70 Total Protein 6.7 Albumin 3.7 Globulin 3.0 Albumin/Globulin Ratio 1.2 Assessment & Plan - Assessment and Plan (Free Text) Assessment: 73 year old female w/ PMHx of HTN, hypercholesterolemia, diabetes, depression, anxiety and dementia recently admitted for Sepsis w/ lactic acidosis likely from UTI. -ID consulted -C/W Levofloxacin -Monitor vitals and labs -F/U Blood and Urine cx -C/W home meds -PT/OT <Tera Agee - Last Filed: 09/01/18 19:19> Results - Vital Signs Recent Vital Signs: Last Vital Signs Temp 98.6 F 09/01/18 16:29 Pulse 77 09/01/18 16:29 Resp 20 09/01/18 16:29 BP 135/73 09/01/18 16:29 Pulse Ox 96 09/01/18 16:29 - Labs Result Diagrams: 09/01/18 06:00 09/01/18 06:00 Labs: Laboratory Results - last 24 hr 08/31/18 09/01/18 09/01/18 21:42 05:29 05:50 WBC RBC Hgb Hct MCV MCH MCHC RDW Plt Count PT 12.4 INR 1.1 APTT 30.3 Sodium Potassium Chloride Carbon Dioxide Anion Gap BUN Creatinine Est GFR ( Amer) Est GFR (Non-Af Amer) POC Glucose (mg/dL) 143 H 149 H Random Glucose Calcium Total Bilirubin AST ALT Alkaline Phosphatase Total Protein Albumin Globulin Albumin/Globulin Ratio 09/01/18 09/01/18 09/01/18 06:00 06:00 10:58 WBC 11.0 H RBC 4.08 Hgb 11.3 L Hct 34.3 MCV 84.1 MCH 27.7 MCHC 33.0 RDW 13.9 Plt Count 269 PT INR APTT Sodium 138 Potassium 3.8 Chloride 98 Carbon Dioxide 27 Anion Gap 17 BUN 31 H Creatinine 1.4 H Est GFR ( Amer) 45 Est GFR (Non-Af Amer) 37 POC Glucose (mg/dL) 206 H Random Glucose 151 H Calcium 10.2 Total Bilirubin 0.7 AST 17 ALT 24 Alkaline Phosphatase 70 Total Protein 6.7 Albumin 3.7 Globulin 3.0 Albumin/Globulin Ratio 1.2 Attending/Attestation - Attestation I have personally seen and examined this patient.: Yes I have fully participated in the care of the patient.: Yes I have reviewed all pertinent clinical information: Yes
[2018-09-01] MEDS: LATUDA 120 MG PO SCH (21:15)
[2018-09-02 06:17] LABS: BASO # 0.1 K/uL (0.0-0.2); BASO % 0.6 % (0.0-2.0); EOS # 0.1 K/uL (0.0-0.7); EOS % 1.3 % (0.0-4.0); HEMOGLOBIN 11.4 g/dL (12.0-16.0); LYMPH # 2.3 K/uL (1.0-4.3); LYMPH % 22.1 % (20.0-40.0); MEAN CELL VOLUME 83.7 fl (81.0-99.0); MEAN CORPUSCULAR HEMOGLOBIN 27.5 pg (27.0-31.0); MEAN CORPUSCULAR HGB CONC 32.9 g/dL (33.0-37.0); MEAN PLATELET VOLUME 9.2 fl (7.2-11.7); MONO % 9.8 % (0.0-10.0); NEUT # 6.9 K/uL (1.8-7.0); NEUT % 66.2 % (50.0-75.0); RBC 4.14 Mil/uL (3.80-5.20); RED CELL DISTRIBUTION WIDTH 14.2 % (11.5-14.5); WHITE BLOOD COUNT 10.4 K/uL (4.8-10.8)
[2018-09-02 06:29] LABS: CALCIUM 9.9 mg/dL (8.4-10.2)
[2018-09-02] MEDS: Metoprolol Succinate 50 mg XL Tab PO SCH (08:21)
[2018-09-02] MEDS: HCTZ/Losartan 12.5/50 Tab PO SCH (08:21)
--- NOTE | 2018-09-02 12:31 | CP.PCM.CON ---
History of Present Illness - History of Present Illness History of Present Illness: Geetha Sheffield is a 73 year old female, with a past medical history of HTN, hypercholesterolemia, diabetes, depression, anxiety and dementia, Was admitted for UTI/sepsis symptoms resolving transferred to TCU for continuation of antibiotics . PMH HTN, hypercholesterolemia, diabetes, depression, anxiety and dementia Review of Systems - Review of Systems All systems: reviewed and no additional remarkable complaints except - Constitutional Constitutional: As Per HPI - EENT Eyes: absent: As Per HPI, Blind Spots, Blurred Vision, Change in Vision, Decreased Night Vision, Diplopia, Discharge, Dry Eye, Exophthalmos, Floaters, Irritation, Itchy Eyes, Loss of Peripheral Vision, Pain, Photophobia, Requires Corrective Lenses, Sees Flashes, Spots in Vision, Tunnel Vision, Other Visual Disturbances, Loss of Vision, Other Ears: absent: As Per HPI, Decreased Hearing, Ear Discharge, Ear Pain, Tinnitus, Abnormal Hearing, Disequilibrium, Dizziness, Other Nose/Mouth/Throat: absent: As Per HPI, Epistaxis, Nasal Congestion, Nasal Discharge, Nasal Obstruction, Nasal Trauma, Nose Pain, Post Nasal Drip, Sinus Pain, Sinus Pressure, Bleeding Gums, Change in Voice, Dental Pain, Dry Mouth, Dysphagia, Halitosis, Hoarsness, Lip Swelling, Mouth Lesions, Mouth Pain, Odynophagia, Sore Throat, Throat Swelling, Tongue Swelling, Facial Pain, Neck Pain, Neck Mass, Other - Breasts Breasts: absent: As Per HPI, Change in Shape, Mass, Pain, Nipple Discharge, Nipple Inversion, Skin Changes, Swelling, Other - Cardiovascular Cardiovascular: absent: As Per HPI, Acrocyanosis, Chest Pain, Chest Pain at Rest, Chest Pain with Activity, Claudication, Diaphoresis, Dyspnea, Dyspnea on Exertion, Edema, Irregular Heart Rhythm, Pain Radiating to Arm/Neck/Jaw, Leg Edema, Leg Ulcers, Lightheadedness, Orthopnea, Palpitations, Paroxysmal Nocturnal Dyspnea, Pedal Edema, Radiating Pain, Rapid Heart Rate, Slow Heart Rate, Syncope, Other - Respiratory Respiratory: absent: As Per HPI, Cough, Dyspnea, Hemoptysis, Dyspnea on Exertion, Wheezing, Snoring, Stridor, Pain on Inspiration, Chest Congestion, Excessive Mucous Production, Change in Mucous Color, Pain with Coughing, Other - Gastrointestinal Gastrointestinal: absent: As Per HPI, Abdominal Pain, Belching, Bloating, Change in Bowel Habits, Change in Stool Character, Coffee Ground Emesis, Constipation, Cramping, Diarrhea, Dyspepsia, Dysphagia, Early Satiety, Excessive Flatus, Fecal Incontinence, Heartburn, Hematemesis, Hematochezia, Loose Stools, Melena, Nausea, Odynophagia, Temesmus, Vomiting, Other - Genitourinary Genitourinary: As Per HPI - Reproductive: Female Reproductive:Female: absent: As Per HPI, Amenorrhea, Amenorrhea/ Control, Currently Menstual, Cycle <21 Days, Cycle >35 Days, Cycle Variable, Menses 1-7 Days, Menses >/= 8 Days, Menses Variable, Cycle > 4 Weeks Between, No Menses for 6 Months, Heavy Menses, Light Menses, Normal Menses, Spotting Between Cycles, S/P Hysterectomy, Menopausal, Post Menopausal, Premenarche, Abnormal Vaginal Bleeding, Dysmenorrhea, Dyspareunia, Genital Lesions, Genital Pruritis, Pelvic Pain, Prolapse Symptoms, Sexual Dysfunction, Vaginal Discharge, Vaginal Dryness, Vaginal Odor, Vaginal Pruritis, Other - Menstruation Menstruation: absent: As Per HPI, Amenorrhea, Amenorrhea/ Control, Currently Menstual, Cycle <21 Days, Cycle >35 Days, Cycle Variable, Menses 1-7 Days, Menses >/= 8 Days, Menses Variable, Cycle > 4 Weeks Between, No Menses for 6 Months, Heavy Menses, Light Menses, Normal Menses, Spotting Between Cycles, S/P Hysterectomy, Menopausal, Post Menopausal, Premenarche, Abnormal Vaginal Bleeding, Dysmenorrhea, Other - Musculoskeletal Musculoskeletal: absent: As Per HPI, Abnormal Gait, Arthralgias, Atrophy, Back Pain, Deformity, Joint Swelling, Limited Range of Motion, Loss of Height, Muscle Cramps, Muscle Weakness, Myalgias, Neck Pain, Numbness, Radiating Pain into Limb, Stiffness, Tingling, Other - Integumentary Integumentary: absent: As Per HPI, Acne, Alopecia, Bleeding Lesions, Change in Hair, Change in Nails, Change in Pigmentation, Changing Lesions, Dry Skin, Luciano thema, Furuncle, Hirsutism, Lesions, New Lesions, Non-Healing Lesions, Photosensitivity, Pruritus, Rash, Skin Pain, Skin Ulcer, Sores, Striae, Swelling, Unusual Bruising, Wounds, Jaundice, Other - Neurological Neurological: As Per HPI - Psychiatric Psychiatric: absent: As Per HPI, Abnormal Sleep Pattern, Anhedonia, Anxiety, Auditory Hallucinations, Behavioral Changes, Change in Appetite, Change in Libido, Confusion, Depression, Difficulty Concentrating, Hallucinations, Homicidal Ideation, Hopelessness, Irritability, Memory Loss, Mood Swings, Panic Attacks, Paranoia, Suicidal Ideation, Visual Hallucinations, Tactile Hallucinations, Other Past Patient History - Past Medical History & Family History Past Medical History?: Yes - Past Social History Smoking Status: Former Smoker - CARDIAC Hx Cardiac Disorders: Yes Hx Hypercholesterolemia: Yes Hx Hypertension: Yes - PULMONARY Hx Respiratory Disorders: No - NEUROLOGICAL Hx Neurological Disorder: Yes Hx Dementia: Yes - HEENT Hx HEENT Problems: No - RENAL Hx Chronic Kidney Disease: No - ENDOCRINE/METABOLIC Hx Endocrine Disorders: Yes Hx Diabetes Mellitus Type 2: Yes - HEMATOLOGICAL/ONCOLOGICAL Hx Blood Disorders: No - INTEGUMENTARY Hx Dermatological Problems: No - MUSCULOSKELETAL/RHEUMATOLOGICAL Hx Falls: Yes - GASTROINTESTINAL Hx Gastrointestinal Disorders: No - GENITOURINARY/GYNECOLOGICAL Hx Genitourinary Disorders: No - PSYCHIATRIC Hx Substance Use: No - SURGICAL HISTORY Hx Surgeries: Yes Hx Cardiac Catheterization: Yes Hx Section: Yes - ANESTHESIA Hx Anesthesia: Yes Hx Anesthesia Reactions: No Meds Allergies/Adverse Reactions: Allergies Allergy/AdvReac Type Severity Reaction Status Date / Time No Known Allergies Allergy Verified 08/31/18 15:09 - Medications Medications: Current Medications Amlodipine Besylate (Norvasc) 5 mg PO DAILY [facility] Last Admin: 09/02/18 08:21 Dose: 5 mg Aspirin (Aspirin Chewable) 81 mg PO DAILY [facility] Last Admin: 09/02/18 08:20 Dose: 81 mg Docusate Sodium (Colace) 100 mg PO BID [facility] Last Admin: 09/02/18 08:20 Dose: 100 mg Escitalopram Oxalate (Lexapro) 20 mg PO HS [facility] Last Admin: 09/01/18 21:16 Dose: 20 mg Glipizide (Glucotrol) 5 mg PO ACB [facility] Last Admin: 09/02/18 06:46 Dose: 5 mg HCTZ/Losartan Potassium (Hyzaar 12.5 Mg-50 Mg) 2 tab PO DAILY [facility] Last Admin: 09/02/18 08:21 Dose: 2 tab Home Med (Patient's Own Medication) 1 unit PO HS [facility] Last Admin: 09/01/18 21:15 Dose: 1 unit Levofloxacin/Dextrose (Levaquin 750mg) 750 mg in 150 mls @ 100 mls/hr IVPB DAILY@1700 [facility]; Protocol Last Admin: 09/01/18 16:35 Dose: 100 mls/hr Lactulose (Enulose) 10 gm PO DAILY PRN PRN Reason: Constipation Lorazepam (Ativan) 2 mg PO HS PRN PRN Reason: Anxiety Memantine (Namenda) 10 mg PO BID [facility] Last Admin: 09/02/18 08:21 Dose: 10 mg Metformin HCl (Glucophage) 500 mg PO BIDWM [facility] Last Admin: 09/02/18 08:20 Dose: 500 mg Metoprolol Succinate (Toprol Xl) 50 mg PO DAILY [facility] Last Admin: 09/02/18 08:21 Dose: 50 mg Quetiapine Fumarate (Seroquel) 400 mg PO [facility] Last Admin: 09/01/18 21:14 Dose: 400 mg Sitagliptin Phosphate (Januvia) 50 mg PO DAILY [facility] Last Admin: 09/02/18 08:21 Dose: 50 mg Trazodone HCl (Desyrel) 100 mg PO [facility] Last Admin: 09/01/18 21:15 Dose: 100 mg Physical Exam - Constitutional Appears: No Acute Distress, Confused, Chronically Ill - Head Exam Head Exam: ATRAUMATIC, NORMOCEPHALIC - Eye Exam Eye Exam: absent: Scleral icterus - ENT Exam ENT Exam: Mucous Membranes Dry, Normal External Ear Exam - Neck Exam Neck exam: Negative for: Lymphadenopathy - Respiratory Exam Respiratory Exam: Decreased Breath Sounds, Rhonchi - Cardiovascular Exam Cardiovascular Exam: REGULAR RHYTHM, +S1, +S2 - GI/Abdominal Exam GI & Abdominal Exam: Diminished Bowel Sounds, Soft. absent: Tenderness - Rectal Exam Rectal Exam: Deferred - Exam Exam: NORMAL INSPECTION - Extremities Exam Extremities exam: Negative for: pedal edema - Back Exam Back exam: absent: CVA tenderness (L), CVA tenderness (R), paraspinal tenderness - Neurological Exam Neurological exam: Alert, Altered, CN II-XII Intact, Reflexes Normal - Psychiatric Exam Psychiatric exam: Depressed - Skin Skin Exam: Dry Results - Vital Signs Recent Vital Signs: Last Vital Signs Temp 97.8 F 09/02/18 08:18 Pulse 84 09/02/18 08:21 Resp 20 09/02/18 08:18 BP 119/80 09/02/18 08:21 Pulse Ox 98 09/02/18 08:18 - Labs Result Diagrams: 09/02/18 05:30 09/02/18 05:30 Labs: Laboratory Results - last 24 hr 09/01/18 09/01/18 09/02/18 16:13 20:57 05:23 WBC RBC Hgb Hct MCV MCH MCHC RDW Plt Count MPV Neut % (Auto) Lymph % (Auto) [place] % (Auto) Eos % (Auto) Baso % (Auto) Neut # (Auto) Lymph # (Auto) [place] # (Auto) Eos # (Auto) Baso # (Auto) Sodium Potassium Chloride Carbon Dioxide Anion Gap BUN Creatinine Est GFR ( Amer) Est GFR (Non-Af Amer) POC Glucose (mg/dL) 242 H 160 H 119 H Random Glucose Lactic Acid Calcium 09/02/18 09/02/18 09/02/18 05:30 05:30 05:30 WBC 10.4 RBC 4.14 Hgb 11.4 L Hct 34.7 MCV 83.7 MCH 27.5 MCHC 32.9 L RDW 14.2 Plt Count 237 MPV 9.2 Neut % (Auto) 66.2 Lymph % (Auto) 22.1 [place] % (Auto) 9.8 Eos % (Auto) 1.3 Baso % (Auto) 0.6 Neut # (Auto) 6.9 Lymph # (Auto) 2.3 [place] # (Auto) 1.0 H Eos # (Auto) 0.1 Baso # (Auto) 0.1 Sodium 139 Potassium 3.8 Chloride 102 Carbon Dioxide 28 Anion Gap 13 BUN 36 H Creatinine 1.6 H Est GFR ( Amer) 38 Est GFR (Non-Af Amer) 32 POC Glucose (mg/dL) Random Glucose 122 H Lactic Acid 1.5 Calcium 9.9 Assessment & Plan (1) Depression Status: Acute (2) UTI (urinary tract infection) Status: Acute - Assessment and Plan (Free Text) Assessment: cont pt/ot check cultures if pt spikes
[2018-09-02] MEDS: levoFLOXacin 750 mg in D5W 750 MG/150 ML BAG IVPB SCH (17:02)
[2018-09-02] MEDS: LATUDA 120 MG PO SCH (21:17)
[2018-09-03] MEDS: HCTZ/Losartan 12.5/50 Tab PO SCH (09:12)
[2018-09-03] MEDS: Metoprolol Succinate 50 mg XL Tab PO SCH (09:14)
--- NOTE | 2018-09-03 11:32 | CP.PCM.PN ---
Subjective - Date & Time of Evaluation Date of Evaluation: 09/02/18 Time of Evaluation: 11:00 - Subjective Subjective: patient seen and examined at bedside. no acute events overnight. feels well. denies cp/sob/fever/chills. all available diagnostic data reviewed vital signs stable Objective - Constitutional Appears: Non-toxic, No Acute Distress - Head Exam Head Exam: NORMAL INSPECTION - Eye Exam Eye Exam: Normal appearance - Respiratory Exam Respiratory Exam: NORMAL BREATHING PATTERN - Cardiovascular Exam Cardiovascular Exam: +S1, +S2 - GI/Abdominal Exam GI & Abdominal Exam: Soft - Neurological Exam Neurological Exam: Alert, Awake, Oriented x3 - Psychiatric Exam Psychiatric exam: Normal Affect, Normal Mood - Skin Skin Exam: Normal Color, Warm Assessment and Plan Cont meds Cont tx Cont PT appreciate recommendations by ID Objective - Vital Signs/Intake and Output Vital Signs (last 24 hours): Temp Pulse Resp BP Pulse Ox 97.0 F L 92 H 20 132/62 98 09/03/18 08:36 09/03/18 09:14 09/03/18 08:36 09/03/18 09:14 09/03/18 08:36 - Medications Medications: Current Medications Amlodipine Besylate (Norvasc) 5 mg PO DAILY [facility] Last Admin: 09/03/18 09:12 Dose: 5 mg Aspirin (Aspirin Chewable) 81 mg PO DAILY [facility] Last Admin: 09/03/18 09:12 Dose: 81 mg Docusate Sodium (Colace) 100 mg PO BID [facility] Last Admin: 09/03/18 09:12 Dose: 100 mg Escitalopram Oxalate (Lexapro) 20 mg PO HS [facility] Last Admin: 09/02/18 21:17 Dose: 20 mg Glipizide (Glucotrol) 5 mg PO ACB [facility] Last Admin: 09/03/18 08:00 Dose: 5 mg HCTZ/Losartan Potassium (Hyzaar 12.5 Mg-50 Mg) 2 tab PO DAILY [facility] Last Admin: 09/03/18 09:12 Dose: 2 tab Home Med (Patient's Own Medication) 1 unit PO HS [facility] Last Admin: 09/02/18 21:17 Dose: 1 unit Levofloxacin/Dextrose (Levaquin 750mg) 750 mg in 150 mls @ 100 mls/hr IVPB DAILY@1700 [facility]; Protocol Last Admin: 09/02/18 17:02 Dose: 100 mls/hr Lactulose (Enulose) 10 gm PO DAILY PRN PRN Reason: Constipation Lorazepam (Ativan) 2 mg PO HS PRN PRN Reason: Anxiety Memantine (Namenda) 10 mg PO BID [facility] Last Admin: 09/03/18 09:13 Dose: 10 mg Metformin HCl (Glucophage) 500 mg PO BIDWM [facility] Last Admin: 09/02/18 17:02 Dose: 500 mg Metoprolol Succinate (Toprol Xl) 50 mg PO DAILY [facility] Last Admin: 09/03/18 09:14 Dose: 50 mg Quetiapine Fumarate (Seroquel) 400 mg PO HS [facility] Last Admin: 09/02/18 21:17 Dose: 400 mg Sitagliptin Phosphate (Januvia) 50 mg PO DAILY [facility] Last Admin: 09/03/18 09:12 Dose: 50 mg Trazodone HCl (Desyrel) 100 mg PO HS [facility] Last Admin: 09/02/18 21:18 Dose: 100 mg - Labs Labs: 09/02/18 05:30 09/02/18 05:30 PT 12.4 Seconds (9.8-13.1) 09/01/18 05:50 INR 1.1 09/01/18 05:50 APTT 30.3 Seconds (25.6-37.1) 09/01/18 05:50
--- NOTE | 2018-09-03 11:33 | CP.PCM.PN ---
Subjective - Date & Time of Evaluation Date of Evaluation: 09/03/18 Time of Evaluation: 11:00 - Subjective Subjective: patient seen and examined at bedside. no acute events overnight. feels well. denies cp/sob/fever/chills. all available diagnostic data reviewed vital signs stable Objective - Constitutional Appears: Non-toxic, No Acute Distress - Head Exam Head Exam: NORMAL INSPECTION - Eye Exam Eye Exam: Normal appearance - Respiratory Exam Respiratory Exam: NORMAL BREATHING PATTERN - Cardiovascular Exam Cardiovascular Exam: +S1, +S2 - GI/Abdominal Exam GI & Abdominal Exam: Soft - Neurological Exam Neurological Exam: Alert, Awake, Oriented x3 - Psychiatric Exam Psychiatric exam: Normal Affect, Normal Mood - Skin Skin Exam: Normal Color, Warm Assessment and Plan Cont meds Cont tx Cont PT appreciate recommendations by ID
[2018-09-03] MEDS ORDERED: Influenza Vaccine 60 MCG/0.5 ML SYR (3 yr & up) IM ONE (16:17)
[2018-09-03] MEDS: levoFLOXacin 750 mg in D5W 750 MG/150 ML BAG IVPB SCH (16:27)
[2018-09-03] MEDS: LATUDA 120 MG PO SCH (22:21)
[2018-09-04] MEDS: HCTZ/Losartan 12.5/50 Tab PO SCH (08:36)
[2018-09-04] MEDS: Metoprolol Succinate 50 mg XL Tab PO SCH (08:37)
--- NOTE | 2018-09-04 12:42 | CP.PCM.PN ---
Subjective - Date & Time of Evaluation Date of Evaluation: 09/04/18 Time of Evaluation: 08:00 - Subjective Subjective: afeb more alert Objective - Vital Signs/Intake and Output Vital Signs (last 24 hours): Temp Pulse Resp BP Pulse Ox 98.2 F 75 20 117/76 96 09/04/18 08:00 09/04/18 08:37 09/04/18 08:00 09/04/18 08:37 09/04/18 08:00 - Medications Medications: Current Medications Amlodipine Besylate (Norvasc) 5 mg PO DAILY REPLAC[facility] BY [facility] Last Admin: 09/04/18 08:37 Dose: 5 mg Aspirin (Aspirin Chewable) 81 mg PO DAILY [facility] Last Admin: 09/04/18 08:35 Dose: 81 mg Docusate Sodium (Colace) 100 mg PO BID [facility] BY [facility] Last Admin: 09/04/18 08:35 Dose: 100 mg Escitalopram Oxalate (Lexapro) 20 mg PO HS [facility]PL[facility] BY [facility] Last Admin: 09/03/18 22:17 Dose: 20 mg Glipizide (Glucotrol) 5 mg PO ACB REPLACED BY [facility] Last Admin: 09/04/18 07:02 Dose: 5 mg HCTZ/Losartan Potassium (Hyzaar 12.5 Mg-50 Mg) 2 tab PO DAILY [facility] Last Admin: 09/04/18 08:36 Dose: 2 tab Home Med (Patient's Own Medication) 1 unit PO HS [facility]PL[facility] BY [facility] Last Admin: 09/03/18 22:21 Dose: 1 unit Levofloxacin/Dextrose (Levaquin 750mg) 750 mg in 150 mls @ 100 mls/hr IVPB DAILY@1700 JUVENCIO; Protocol Insulin Detemir (Levemir) 10 units SC [facility] Lactulose (Enulose) 10 gm PO DAILY PRN PRN Reason: Constipation Lorazepam (Ativan) 2 mg PO HS PRN PRN Reason: Anxiety Memantine (Namenda) 10 mg PO BID [facility]PLAC[facility] BY [facility] Last Admin: 09/04/18 08:37 Dose: 10 mg Metoprolol Succinate (Toprol Xl) 50 mg PO DAILY [facility] Last Admin: 09/04/18 08:37 Dose: 50 mg Quetiapine Fumarate (Seroquel) 400 mg PO [facility] Last Admin: 09/03/18 22:18 Dose: 400 mg Sitagliptin Phosphate (Januvia) 50 mg PO DAILY [facility]PL[facility] Last Admin: 09/04/18 08:36 Dose: 50 mg Trazodone HCl (Desyrel) 100 mg PO HS [facility] Last Admin: 09/03/18 22:17 Dose: 100 mg - Labs Labs: 09/02/18 05:30 09/02/18 05:30 PT 12.4 Seconds (9.8-13.1) 09/01/18 05:50 INR 1.1 09/01/18 05:50 APTT 30.3 Seconds (25.6-37.1) 09/01/18 05:50 - Constitutional Appears: Non-toxic, Chronically Ill - Head Exam Head Exam: NORMOCEPHALIC - Eye Exam Eye Exam: absent: Scleral icterus - ENT Exam ENT Exam: Mucous Membranes Dry - Neck Exam Neck Exam: absent: Lymphadenopathy - Respiratory Exam Respiratory Exam: Decreased Breath Sounds - Cardiovascular Exam Cardiovascular Exam: REGULAR RHYTHM - GI/Abdominal Exam GI & Abdominal Exam: Distended, Soft - Rectal Exam Rectal Exam: Deferred - Exam Exam: NORMAL INSPECTION Assessment and Plan (1) Depression Status: Acute (2) UTI (urinary tract infection) Status: Acute - Assessment and Plan (Free Text) Assessment: cont iv antibiotics Plan: repeat u/a
[2018-09-04] MEDS: levoFLOXacin 750 mg in D5W 750 MG/150 ML BAG IVPB SCH (16:21)
[2018-09-04] MEDS: Insulin Detemir 100 Units/ml Inj SC SCH (23:05)
[2018-09-04] MEDS: LATUDA 120 MG PO SCH (23:07)
[2018-09-05] MEDS: Metoprolol Succinate 50 mg XL Tab PO SCH (09:00)
[2018-09-05] MEDS: HCTZ/Losartan 12.5/50 Tab PO SCH (09:01)
[2018-09-05] MEDS ORDERED: Pneumococcal 23-Valent Vaccine IM ONE (10:55)
[2018-09-05] MEDS: levoFLOXacin 750 mg in D5W 750 MG/150 ML BAG IVPB SCH (17:01)
[2018-09-05] MEDS: Insulin Detemir 100 Units/ml Inj SC SCH (21:11)
[2018-09-05] MEDS: LATUDA 120 MG PO SCH (22:28)
[2018-09-06] MEDS: HCTZ/Losartan 12.5/50 Tab PO SCH (09:21)
[2018-09-06] MEDS: Metoprolol Succinate 50 mg XL Tab PO SCH (09:22)
[2018-09-06] MEDS: levoFLOXacin 750 mg in D5W 750 MG/150 ML BAG IVPB SCH (16:17)
[2018-09-06] MEDS: Insulin Detemir 100 Units/ml Inj SC SCH (21:45)
[2018-09-06] MEDS: LATUDA 120 MG PO SCH (22:23)
[2018-09-07] MEDS: HCTZ/Losartan 12.5/50 Tab PO SCH (08:39)
[2018-09-07] MEDS: Metoprolol Succinate 50 mg XL Tab PO SCH (08:40)
[2018-09-07] MEDS: Insulin Detemir 100 Units/ml Inj SC SCH (21:53)
[2018-09-07] MEDS: LATUDA 120 MG PO SCH (21:55)
[2018-09-08] MEDS: Metoprolol Succinate 50 mg XL Tab PO SCH (08:47)
[2018-09-08] MEDS: HCTZ/Losartan 12.5/50 Tab PO SCH (08:48)
--- NOTE | 2018-09-08 10:06 | RAD ---
Date of service: 09/07/2018 PROCEDURE: Bilateral Knee Radiographs. HISTORY: to rule out ARTHRITIS COMPARISON: Comparison is made with the previous x-ray of the left knee dated 04/15/2011 FINDINGS: BONES: Right Knee: Normal. No fracture. Left Knee: Normal. No fracture. JOINTS: Right Knee: Mild osteoarthritic changes Left knee: Moderate osteoarthritic changes. There is interval appearance of ossicles in the suprapatellar joint space of the left knee since the prior study. SOFT TISSUES: Right Knee: Mild soft tissues swelling Left Knee: Mild soft tissue swelling JOINT EFFUSION: Right Knee: None. Left Knee: Mild suprapatellar joint effusion noted. OTHER FINDINGS: None. IMPRESSION: Moderate left and mild right osteoarthritis. Interval appearance of well-defined ossicle in the left suprapatellar region since the prior study likely represent loose body. Suspicious for small left knee joint effusion.
[2018-09-08] MEDS: Insulin Detemir 100 Units/ml Inj SC SCH (23:22)
[2018-09-08] MEDS: LATUDA 120 MG PO SCH (23:24)
[2018-09-09 08:11] VITALS: TEMP 98; O2SAT 98
[2018-09-09] MEDS: HCTZ/Losartan 12.5/50 Tab PO SCH (09:30)
[2018-09-09] MEDS: Metoprolol Succinate 50 mg XL Tab PO SCH (09:31)
[2018-09-09 09:37] VITALS: BP 118/64; PULSE 64
--- NOTE | 2018-09-09 12:43 | CP.PCM.DIS ---
Provider - Provider Date of Admission: 08/31/18 16:01 Attending physician: Tera Agee MD Consults: 08/31/18 16:05 Infectious Disease Consult Routine Comment: Consulting Provider: Merritt Sherman Consulting Physician: Merritt Sherman Reason for Consult: Sepsis Time Spent in preparation of Discharge (in minutes): 35 Diagnosis - Discharge Diagnosis (1) Mobility poor Status: Chronic (2) UTI (urinary tract infection) Status: Resolved Hospital Course - Lab Results Lab Results: Most Recent Lab Values WBC 10.4 K/uL (4.8-10.8) 09/02/18 05:30 RBC 4.14 Mil/uL (3.80-5.20) 09/02/18 05:30 Hgb 11.4 g/dL (12.0-16.0) L 09/02/18 05:30 Hct 34.7 % (34.0-47.0) 09/02/18 05:30 MCV 83.7 fl (81.0-99.0) 09/02/18 05:30 MCH 27.5 pg (27.0-31.0) 09/02/18 05:30 MCHC 32.9 g/dL (33.0-37.0) L 09/02/18 05:30 RDW 14.2 % (11.5-14.5) 09/02/18 05:30 Plt Count 237 K/uL (130-400) 09/02/18 05:30 MPV 9.2 fl (7.2-11.7) 09/02/18 05:30 Neut % (Auto) 66.2 % (50.0-75.0) 09/02/18 05:30 Lymph % (Auto) 22.1 % (20.0-40.0) 09/02/18 05:30 [place] % (Auto) 9.8 % (0.0-10.0) 09/02/18 05:30 Eos % (Auto) 1.3 % (0.0-4.0) 09/02/18 05:30 Baso % (Auto) 0.6 % (0.0-2.0) 09/02/18 05:30 Neut # (Auto) 6.9 K/uL (1.8-7.0) 09/02/18 05:30 Lymph # (Auto) 2.3 K/uL (1.0-4.3) 09/02/18 05:30 [place] # (Auto) 1.0 K/uL (0.0-0.8) H 09/02/18 05:30 Eos # (Auto) 0.1 K/uL (0.0-0.7) 09/02/18 05:30 Baso # (Auto) 0.1 K/uL (0.0-0.2) 09/02/18 05:30 PT 12.4 Seconds (9.8-13.1) 09/01/18 05:50 INR 1.1 09/01/18 05:50 APTT 30.3 Seconds (25.6-37.1) 09/01/18 05:50 Sodium 139 mmol/l (132-148) 09/02/18 05:30 Potassium 3.8 MMOL/L (3.6-5.0) 09/02/18 05:30 Chloride 102 mmol/L (98-107) 09/02/18 05:30 Carbon Dioxide 28 mmol/L (22-30) 09/02/18 05:30 Anion Gap 13 (10-20) 09/02/18 05:30 BUN 36 mg/dl (7-17) H 09/02/18 05:30 Creatinine 1.6 mg/dl (0.7-1.2) H 09/02/18 05:30 Est GFR ( Amer) 38 09/02/18 05:30 Est GFR (Non-Af Amer) 32 09/02/18 05:30 POC Glucose (mg/dL) 208 mg/dL (65-110) H 09/09/18 10:22 Random Glucose 122 mg/dL (65-105) H 09/02/18 05:30 Lactic Acid 1.5 MMOL/L (0.7-2.1) 09/02/18 05:30 Calcium 9.9 mg/dL (8.4-10.2) 09/02/18 05:30 Total Bilirubin 0.7 mg/dl (0.2-1.3) 09/01/18 06:00 AST 17 U/L (14-36) 09/01/18 06:00 ALT 24 U/L (9-52) 09/01/18 06:00 Alkaline Phosphatase 70 U/L (38-126) 09/01/18 06:00 Total Protein 6.7 G/DL (6.3-8.2) 09/01/18 06:00 Albumin 3.7 g/dL (3.5-5.0) 09/01/18 06:00 Globulin 3.0 gm/dL (2.2-3.9) 09/01/18 06:00 Albumin/Globulin Ratio 1.2 (1.0-2.1) 09/01/18 06:00 - Hospital Course Hospital Course: 73 year old female w/ PMHx of HTN, hypercholesterolemia, diabetes, depression, anxiety and dementia recently admitted for Sepsis w/ lactic acidosis likely from UTI. Blood and urine Cultures have all been negative so far. She was treated with levofloxacin to completion. Pt discharged to TCU for gait training, mobility, and strength. ID followed patient while in TCU. Pt stable for discharge on new Rx of Levemir which was started during her admission (due to poor renal function <30 GFR, metformin discontinued). Pt to f/u with PMD outpatient in 1 week. Discharge Exam - Head Exam Head Exam: NORMOCEPHALIC - Eye Exam Eye Exam: Normal appearance - ENT Exam ENT Exam: Mucous Membranes Moist - Respiratory Exam Respiratory Exam: Clear to PA & Lateral - Cardiovascular Exam Cardiovascular Exam: REGULAR RHYTHM - GI/Abdominal Exam GI & Abdominal Exam: Normal Bowel Sounds - Extremities Exam Extremities exam: normal inspection - Neurological Exam Neurological exam: Alert, Oriented x3 - Psychiatric Exam Psychiatric exam: Normal Affect - Skin Skin Exam: Normal Color Discharge Plan - Discharge Medications Prescriptions: Insulin Detemir [Levemir] 12 units SC HS 30 Days #7 vial - Follow Up Plan Condition: GOOD Disposition: DISCHARGED TO HOME CARE Instructions: Insulin Injection, Urinary Tract Infection, Adult (DC), Preventing Falls, Urinary Tract Infection in Women (DC), Urinary Tract Infection in Men (DC), Dysuria (GEN)
== END 2018-09-09 14:15 | disposition home health service (06) | DRG 872 ==
LOC: H.TCU 16:01
PROVIDERS: ADMIT Family Medicine; ATTEND Family Medicine
PROC: F07Z9FZ Gait Training/Functional Ambulation Treatment using Assistive, Adaptive, Supportive or Protective Equipment (ICD-10-PCS; principal; 2018-08-31)
PROC: F08Z1FZ Dressing Techniques Treatment using Assistive, Adaptive, Supportive or Protective Equipment (ICD-10-PCS; 2018-08-31)
PROC: F07L6GZ Therapeutic Exercise Treatment of Musculoskeletal System - Lower Back / Lower Extremity using Aerobic Endurance and Conditioning Equipment (ICD-10-PCS; 2018-08-31)
PROC: 3E0234Z Introduction of Serum, Toxoid and Vaccine into Muscle, Percutaneous Approach (ICD-10-PCS; 2018-09-03)
PROC: 3E02340 Introduction of Influenza Vaccine into Muscle, Percutaneous Approach (ICD-10-PCS; 2018-09-03)
DX: A41.9 Sepsis, unspecified organism (principal); N39.0 Urinary tract infection, site not specified; I10 Essential (primary) hypertension; E78.00 Pure hypercholesterolemia, unspecified; E11.9 Type 2 diabetes mellitus without complications; F32.9 Major depressive disorder, single episode, unspecified; F41.9 Anxiety disorder, unspecified; F03.90 Unspecified dementia, unspecified severity, without behavioral disturbance, psychotic disturbance, mood disturbance, and anxiety; Z87.891 Personal history of nicotine dependence; Z23 Encounter for immunization